=== PATIENT | female | born 1940 | race African-American/Black ===

== ENCOUNTER 2016-08-30 13:50 | Outpatient (CLI) | payer MEDICARE, BC | END 2016-08-30 23:59 | disposition home health service (06) | LOC: WOU 13:50 | PROVIDERS: ATTEND Surgery | DX: L89.324 Pressure ulcer of left buttock, stage 4 (principal); L89.323 Pressure ulcer of left buttock, stage 3; Z87.891 Personal history of nicotine dependence; E66.9 Obesity, unspecified; Z68.32 Body mass index [BMI] 32.0-32.9, adult; I10 Essential (primary) hypertension; R91.1 Solitary pulmonary nodule; N13.30 Unspecified hydronephrosis; G82.20 Paraplegia, unspecified; V89.2XXS Person injured in unspecified motor-vehicle accident, traffic, sequela | CPT/HCPCS: 11042; 11043; A6253; A6402 ==

== ENCOUNTER 2016-09-06 11:14 | Outpatient (CLI) | payer MEDICARE, BC | END 2016-09-06 23:59 | disposition home or self-care (01) | LOC: CT 11:14 | DX: R93.8 Abnormal findings on diagnostic imaging of other specified body structures (principal); I70.0 Atherosclerosis of aorta; I25.10 Atherosclerotic heart disease of native coronary artery without angina pectoris; N13.30 Unspecified hydronephrosis; Z90.49 Acquired absence of other specified parts of digestive tract | CPT/HCPCS: 71250-TC ==

== ENCOUNTER 2016-09-06 11:54 | Outpatient (CLI) | payer MEDICARE, BC | END 2016-09-06 23:59 | disposition home health service (06) | LOC: WOU 11:54 | PROVIDERS: ATTEND Surgery | DX: L89.324 Pressure ulcer of left buttock, stage 4 (principal); L89.323 Pressure ulcer of left buttock, stage 3; M86.68 Other chronic osteomyelitis, other site; Z87.891 Personal history of nicotine dependence; G82.20 Paraplegia, unspecified; T14.8 Other injury of unspecified body region; V89.2XXS Person injured in unspecified motor-vehicle accident, traffic, sequela; I10 Essential (primary) hypertension; E66.9 Obesity, unspecified; Z68.32 Body mass index [BMI] 32.0-32.9, adult; Z71.3 Dietary counseling and surveillance; D64.9 Anemia, unspecified; N13.30 Unspecified hydronephrosis; R91.1 Solitary pulmonary nodule; M99.85 Other biomechanical lesions of pelvic region | CPT/HCPCS: 11042; 11043; A6253; A6402; G0463 ==

== ENCOUNTER 2016-09-20 13:45 | Outpatient (CLI) | payer MEDICARE, BC | END 2016-09-20 23:59 | disposition home health service (06) | LOC: WOU 13:45 | PROVIDERS: ATTEND Surgery | DX: L89.324 Pressure ulcer of left buttock, stage 4 (principal); L89.323 Pressure ulcer of left buttock, stage 3; M86.68 Other chronic osteomyelitis, other site; Z87.891 Personal history of nicotine dependence; G82.20 Paraplegia, unspecified; T14.8 Other injury of unspecified body region; V89.2XXS Person injured in unspecified motor-vehicle accident, traffic, sequela; I10 Essential (primary) hypertension; E66.9 Obesity, unspecified; Z68.32 Body mass index [BMI] 32.0-32.9, adult; Z71.3 Dietary counseling and surveillance; D64.9 Anemia, unspecified; N13.30 Unspecified hydronephrosis; R91.1 Solitary pulmonary nodule; M99.85 Other biomechanical lesions of pelvic region | CPT/HCPCS: 11042; 11043; A6253; A6402 ==

== ENCOUNTER 2016-10-04 13:54 | Outpatient (CLI) | payer MEDICARE, BC | END 2016-10-04 23:59 | disposition home health service (06) | LOC: WOU 13:54 | PROVIDERS: ATTEND Surgery | DX: L89.324 Pressure ulcer of left buttock, stage 4 (principal); L89.323 Pressure ulcer of left buttock, stage 3; E66.9 Obesity, unspecified; Z68.32 Body mass index [BMI] 32.0-32.9, adult; N94.89 Other specified conditions associated with female genital organs and menstrual cycle; D64.9 Anemia, unspecified; I10 Essential (primary) hypertension; R91.1 Solitary pulmonary nodule; Z87.891 Personal history of nicotine dependence | CPT/HCPCS: 11042; 11043; A6253; A6402 ==

== ENCOUNTER 2016-10-18 14:02 | Outpatient (CLI) | payer MEDICARE, BC | END 2016-10-18 23:59 | disposition home health service (06) | LOC: WOU 14:02 | PROVIDERS: ATTEND Surgery | DX: L89.324 Pressure ulcer of left buttock, stage 4 (principal); L89.323 Pressure ulcer of left buttock, stage 3; Z87.891 Personal history of nicotine dependence; G82.20 Paraplegia, unspecified; T14.8 Other injury of unspecified body region; V89.2XXS Person injured in unspecified motor-vehicle accident, traffic, sequela; I10 Essential (primary) hypertension; E66.9 Obesity, unspecified; Z68.32 Body mass index [BMI] 32.0-32.9, adult; Z71.3 Dietary counseling and surveillance; D64.9 Anemia, unspecified; R91.1 Solitary pulmonary nodule; R15.9 Full incontinence of feces; R32 Unspecified urinary incontinence | CPT/HCPCS: 11042; 11043; A6253; A6402 ==

== ENCOUNTER 2016-11-08 13:12 | Outpatient (CLI) | payer MEDICARE, BC | END 2016-11-08 23:59 | disposition home health service (06) | LOC: WOU 13:12 | PROVIDERS: ATTEND Surgery | DX: L89.324 Pressure ulcer of left buttock, stage 4 (principal); M86.652 Other chronic osteomyelitis, left thigh; Z87.891 Personal history of nicotine dependence; E66.9 Obesity, unspecified; Z68.32 Body mass index [BMI] 32.0-32.9, adult; Z71.3 Dietary counseling and surveillance; D64.9 Anemia, unspecified; R91.1 Solitary pulmonary nodule; G82.20 Paraplegia, unspecified; I10 Essential (primary) hypertension; N94.89 Other specified conditions associated with female genital organs and menstrual cycle; Z87.440 Personal history of urinary (tract) infections; T14.8 Other injury of unspecified body region; V89.2XXS Person injured in unspecified motor-vehicle accident, traffic, sequela; R32 Unspecified urinary incontinence; R15.9 Full incontinence of feces | CPT/HCPCS: 11042; 11043; A6253; A6402 ==

== ENCOUNTER 2016-12-20 14:03 | Outpatient (CLI) | payer MEDICARE, BC | END 2016-12-20 23:59 | disposition home or self-care (01) | LOC: WOU 14:03 | PROVIDERS: ATTEND Surgery | DX: L89.324 Pressure ulcer of left buttock, stage 4 (principal); L89.323 Pressure ulcer of left buttock, stage 3; G82.20 Paraplegia, unspecified; I10 Essential (primary) hypertension; N94.89 Other specified conditions associated with female genital organs and menstrual cycle; T14.8 Other injury of unspecified body region; V89.2XXS Person injured in unspecified motor-vehicle accident, traffic, sequela; R32 Unspecified urinary incontinence; R15.9 Full incontinence of feces; Z87.891 Personal history of nicotine dependence; E66.9 Obesity, unspecified; Z68.32 Body mass index [BMI] 32.0-32.9, adult; Z71.3 Dietary counseling and surveillance; D64.9 Anemia, unspecified; J98.4 Other disorders of lung | CPT/HCPCS: 11042; 11043; A6253; A6402 ==

== ENCOUNTER 2016-12-27 12:25 | Outpatient (CLI) | payer MEDICARE, BC | END 2016-12-27 23:59 | disposition home health service (06) | LOC: WOU 12:25 | PROVIDERS: ATTEND Surgery | DX: L89.324 Pressure ulcer of left buttock, stage 4 (principal); L89.323 Pressure ulcer of left buttock, stage 3; R10.31 Right lower quadrant pain; N94.89 Other specified conditions associated with female genital organs and menstrual cycle; E66.9 Obesity, unspecified; Z68.32 Body mass index [BMI] 32.0-32.9, adult; Z71.3 Dietary counseling and surveillance; L53.9 Erythematous condition, unspecified; D64.9 Anemia, unspecified; I10 Essential (primary) hypertension; R91.1 Solitary pulmonary nodule; M86.652 Other chronic osteomyelitis, left thigh; T14.90 Injury, unspecified; G82.20 Paraplegia, unspecified; V89.2XXS Person injured in unspecified motor-vehicle accident, traffic, sequela; Z87.891 Personal history of nicotine dependence; R32 Unspecified urinary incontinence; R15.9 Full incontinence of feces | CPT/HCPCS: 11042; 11043; A6402 ==

== ENCOUNTER 2017-01-10 14:25 | Outpatient (CLI) | payer MEDICARE, BC | END 2017-01-10 23:59 | disposition home health service (06) | LOC: WOU 14:25 | PROVIDERS: ATTEND Surgery | DX: L89.324 Pressure ulcer of left buttock, stage 4 (principal); G82.20 Paraplegia, unspecified; E66.9 Obesity, unspecified; Z68.32 Body mass index [BMI] 32.0-32.9, adult; L89.323 Pressure ulcer of left buttock, stage 3; N94.89 Other specified conditions associated with female genital organs and menstrual cycle; Z87.891 Personal history of nicotine dependence; L53.9 Erythematous condition, unspecified; R91.1 Solitary pulmonary nodule; M86.652 Other chronic osteomyelitis, left thigh | CPT/HCPCS: 11043; A6253; A6402 ==

== ENCOUNTER 2017-01-24 14:00 | Outpatient (CLI) | payer MEDICARE, BC | END 2017-01-24 23:59 | disposition home health service (06) | LOC: WOU 14:00 | PROVIDERS: ATTEND Surgery | DX: L89.324 Pressure ulcer of left buttock, stage 4 (principal); L89.323 Pressure ulcer of left buttock, stage 3; L89.322 Pressure ulcer of left buttock, stage 2; G82.20 Paraplegia, unspecified; D64.9 Anemia, unspecified; E66.9 Obesity, unspecified; Z68.32 Body mass index [BMI] 32.0-32.9, adult; N94.89 Other specified conditions associated with female genital organs and menstrual cycle; Z87.891 Personal history of nicotine dependence; L53.9 Erythematous condition, unspecified; I10 Essential (primary) hypertension; R91.1 Solitary pulmonary nodule; M25.519 Pain in unspecified shoulder; M86.652 Other chronic osteomyelitis, left thigh | CPT/HCPCS: 11042; 11043; A6253; A6402 ==

== ENCOUNTER 2017-02-14 14:00 | Outpatient (CLI) | payer MEDICARE, BC | END 2017-02-14 23:59 | disposition home health service (06) | LOC: WOU 14:00 | PROVIDERS: ATTEND Surgery | DX: L89.324 Pressure ulcer of left buttock, stage 4 (principal); L89.323 Pressure ulcer of left buttock, stage 3; D64.9 Anemia, unspecified; E66.9 Obesity, unspecified; Z86.32 Personal history of gestational diabetes; N94.89 Other specified conditions associated with female genital organs and menstrual cycle; Z87.891 Personal history of nicotine dependence; M25.519 Pain in unspecified shoulder; I10 Essential (primary) hypertension; R91.1 Solitary pulmonary nodule; L53.9 Erythematous condition, unspecified; M86.652 Other chronic osteomyelitis, left thigh | CPT/HCPCS: 11042; 11043; A6253; A6402 ==

== ENCOUNTER 2017-12-19 16:41 | Inpatient (IN) | payer BC, MEDICARE, OTHER ==
[~2017-12-19] VITALS: Ht 167.6 cm; Wt 104.4 kg
[2017-12-19] VITALS (12 sets, daily range): BP systolic 69–138; BP diastolic 16–77
--- NOTE | 2017-12-19 16:48 | NUR ---
KILEY 89 FROM [facility]IS [facility]ENTER, DIDN'T FINISH THE DIALYSIS, C/O O2 DESAT TO 82% DURING DIALYSIS. PLACED ON THE MONITOR. MIDLINE DAMARI NOTED, +PATENT. AWAITING MD FOR EVAL.
--- NOTE | 2017-12-19 16:55 | NUR ---
PT. 77 Y OLD FEMALE REC. IN ER AWAKE, BUT NOT RESPONSIVE. PT. TRACHED PORTEX# 8 PLACED ON VENT WITH NOTED SETTINGS, ALARMS ARE SET AND FUNCTIONAL. EQUAL CHEST RISE NOTED. SUX'D FOR MINIMAL AMT. THICK YELLOW SECRETIONS, B/S RHONCHI BILATERALLY. AMBU BAG REMAIN AT THE BEDSIDE. VENT PLUGGED INTO REDOUT LET. CONTINUE FOR CARE AND MONITORING. REPORT WILL PASS TO PM SHIFT. Addendum: 12/19/17 at 1751 by ALMA CLANCY RT Amended: Links added.
[2017-12-19] MEDS ORDERED: IV NS 0.9% 500 ML BAG IV ONE (17:30)
[2017-12-19 17:42] LABS: BASOPHILS % (AUTO) 0.1 % (0.0-2.0); EOSINOPHILS % (AUTO) 0.1 % (0.0-6.0); HEMATOCRIT 23 % (33-45); HEMOGLOBIN 7.8 g/dL (11.5-14.8); LYMPHOCYTES # (AUTO) 0.6 /CMM (0.8-4.8); LYMPHOCYTES % (AUTO) 4.2 % (20.0-44.0); MEAN CORPUSCULAR HGB CONC 33 g/dl (31.0-36.0); MEAN CORPUSCULAR VOLUME 88 fL (82-100); MONOCYTES # (AUTO) 0.4 /CMM (0.1-1.30); MONOCYTES % (AUTO) 2.8 % (2.0-12.0); NEUTROPHILS # (AUTO) 13.7 /CMM (1.8-8.9); NEUTROPHILS % (AUTO) 92.8 % (43.0-81.0); PLATELET COUNT (AUTO) 150 /CMM (150-450); RDW COEFFICIENT OF VARIATION 20.6 (11.5-15.0); RED BLOOD CELL COUNT(AUTO) 2.63 MIL/uL (4.0-5.2); WHITE BLOOD COUNT (AUTO) 14.7 K/uL (4.3-11.0)
[2017-12-19] MEDS ORDERED: DOPamine 400 MG in IV D5W 250 ML IV ONE (18:00)
[2017-12-19 18:03] LABS: TROPONIN I < 0.017 ng/mL (0.00-0.056)
[2017-12-19] MEDS ORDERED: DOPamine 400MG/D5W 250ML RTU 250 ML IV ONE (18:04)
[2017-12-19 18:11] LABS: ALANINE AMINOTRANSFERASE 21 U/L (12-78); ALBUMIN 1.9 g/dL (3.4-5.0); ALKALINE PHOSPHATASE 172 U/L (46-116); ASPARTATE AMINOTRANSFERASE 22 U/L (15-37); B-TYPE NATRIURETIC PEPTIDE 1912 PG/ML (0-125); BAND % (MANUAL) 25 % (0.0-5.0); BILIRUBIN,DIRECT 0.1 mg/dL (0.0-0.2); BILIRUBIN,TOTAL 0.3 mg/dL (0.2-1.0); CALCIUM, SERUM 10.2 mg/dL (8.5-10.1); CARBON DIOXIDE 23 mmol/L (21-32); CHLORIDE 102 mmol/L (98-107); CREATININE 0.7 mg/dL (0.6-1.3); GLUCOSE 86 mg/dL (74-106); LYMPHOCYTES % (MANUAL) 7 % (16-48); METAMYELOCYTES % 1 % (0-0); MONOCYTES % (MANUAL) 3 % (0-11.0); MYELOCYTES % 1 % (0-0); NEUTROPHILS % (MANUAL) 63 (42-76); TOTAL PROTEIN, SERUM 5.7 g/dL (6.4-8.2); UREA NITROGEN, BLOOD 37 mg/dL (7-18)
[2017-12-19 18:22] LABS: INR 0.91 (0.87-1.13)
[2017-12-19] MEDS ORDERED: ONDA4TAB5 GT (18:23)
[2017-12-19] MEDS ORDERED: CLON0.1T GT (18:23)
[2017-12-19] MEDS ORDERED: MORP2SYR IV (18:23)
[2017-12-19] MEDS ORDERED: LEVO200T8 GT (18:23)
[2017-12-19] MEDS ORDERED: VIT1TABL46 GT (18:23)
[2017-12-19] MEDS ORDERED: LOSA25TA13 GT (18:23)
[2017-12-19] MEDS ORDERED: PANT40TA2 GT (18:23)
[2017-12-19] MEDS ORDERED: LORA0.5T PO (18:23)
[2017-12-19] MEDS ORDERED: ACET-868 PO (18:23)
[2017-12-19] MEDS ORDERED: NUT.237L67 GT (18:23)
[2017-12-19] MEDS ORDERED: PROT946L GT (18:23)
[2017-12-19] MEDS ORDERED: ASCO250T5 GT (18:23)
[2017-12-19 18:27] LABS: POTASSIUM 2.5 mmol/L (3.5-5.1); SODIUM SERUM 135 mmol/L (136-145)
--- NOTE | 2017-12-19 18:58 | NUR ---
REPORT GIVEN TO SHELDON LORENZ FOR KIERA.
[2017-12-19] MEDS ORDERED: PIPERACILLIN /TAZOBACTAM 3.375 G in IV D5W 50 ML IV ONE (19:00)
[2017-12-19] MEDS ORDERED: VANCOMYCIN 1 GM in IV D5W 250 ML IV ONE (19:00)
[2017-12-19] MEDS ORDERED: PIPERACILLIN /TAZOBACTAM 3.375 G VIAL IV ONE (19:09)
--- NOTE | 2017-12-19 19:40 | NUR ---
ICU 260
--- NOTE | 2017-12-19 19:41 | NUR ---
ADMITTING DX AMS, FANG JACK REGULATED PROGRAM MANAGER
[2017-12-19] MEDS ORDERED: ONDANSETRON HCL/PF 4 MG/2 ML VIAL IVP PRN (20:00)
[2017-12-19] MEDS ORDERED: ALBUTEROL FS 2.5 MG/0.5 ML VIAL.NEB NEB PRN (20:00)
[2017-12-19] MEDS ORDERED: FENTANYL PF 100MCG/2ML AMPUL IV PRN (20:00)
[2017-12-19] MEDS ORDERED: IPRATROPIUM NEB FS 0.5 MG/2.5 ML AMPUL.NEB NEB PRN (20:00)
[2017-12-19] MEDS ORDERED: VANCOMYCIN 1 GM VIAL ONE (20:24)
--- NOTE | 2017-12-19 20:42 | NUR ---
RT TRANSFERRED PT TO ROOM 260 VIA AMBU BAG PT RETUNED TO PREVIOUS SETTINGS AMBU BAG AT BEDSIDE ALARMS SET AND AUDIBLE. DISCONNECT ALARMS CHECKED. VENT PLUGGED INTO RED OUTLET. TOLERATING VENT SETTINGS AT THIS TIME Addendum: 12/19/17 at 4 by HOMAR PALACIOS RT Amended: Links added.
[2017-12-19] MEDS: DOPamine 400 MG in IV D5W 250 ML IV PRN (20:45)
--- NOTE | 2017-12-19 21:00 | NUR ---
INTEGRATION SOLUTION ARCHITECT - NOTES - PT RECEIVED FROM ER ADMITTED FOR LOW BP AND LOW 02SAT DURING HD. PT IS FUNCTIONAL QUADRIPLEGIC. PT IS ALERT AND ABLE TO TRACK AND BLINK ONCE FOR NO AND TWICE FOR YES. PT IS IN SINUS RHYTHM ON DOPAMINE @ 5 MCG FROM ER. PT HAS MIDLINE INSERTED BEFORE ADMISSION, PATENT. PT HAS +4 PITTING EDEMA WEEPING, PT HAS SKIN TEAR ON RIGHT ARM, LEFT HAND, AND FULL THICKNESS LOSS WOUND ON LEFT BUTTOCK 2 CM X 2 CM X 4 CM (DEEP). PT HAS TRACH PORTEX 8. PT HAS PEG TUBE. POTASSIUM IS 2.5, WILL GIVE 40 MEQ KCL VIA IV. WILL CONTINUE TO MONITOR
[2017-12-19] MEDS: PANTOPRAZOLE 40 MG VIAL IV SCH (21:03)
[2017-12-19] MEDS: POTASSIUM CL. PREMIX PERIPHER. 50 ML IV SCH ×3 (21:03→23:12)
--- NOTE | 2017-12-19 21:52 | NUR ---
DAVID PEREZ CELL PHONE NUMBER [phone]. HE SAYS HE WANTS PATIENT TO BE FULL CODE, PT SIGNED TO VOID POLST (DNR) IN CHART. ALSO SIGNED CONSENT FOR PICC LINE, EXPLAINED RISKS AND BENEFITS OF PICC LINE AND AGREES TO HAVE ONE PLACED IF NEEDED
[2017-12-19] MEDS ORDERED: DOPamine 400 MG/D5W 250 ML RTU PIGGYBACK IV ONE (23:00)
[2017-12-19] MEDS ORDERED: DOPamine 400 MG/D5W 250 ML RTU PIGGYBACK IV PRN ×2 (23:00→23:02)
[2017-12-19 23:13] LABS: ABG BASE EXCESS -8.5 mmol/L; ABG OXYGEN SATURATION 89.8 % (92.0-98.5); ABG PCO2 52.2 mmHg (35.0-45.0); AaDO2 234.8 mmHg; COHb 1.1 % (0.5-1.5); MetHb 0.3 % (0.0-1.5); O2Hb 88.5 % (94.0-97.0); PEEP,BG 5 cm H2O; SITE, ABG Left Radial; VENT MODE, BG VENT-AC; VT, ABG 500 mL
[2017-12-19] MEDS: IPRATROPIUM NEB FS 0.5 MG/2.5 ML AMPUL.NEB NEB SCH (23:30)
[2017-12-19] MEDS: ALBUTEROL FS 2.5 MG/0.5 ML VIAL.NEB NEB SCH (23:30)
--- NOTE | 2017-12-19 23:42 | NUR ---
PT REC'D TRACHED WITH PORTEX 8 ON [facility] VENT WITH NOTED SETTINGS. PT TOLERATING WELL NO SOB NOTED AT THIS TIME. SX DONE, SMALL AMOUNT OF THICK YELLOW/BYNUM. BREATH SOUNDS CLEAR AND EQUAL BILAT. VENT PLUGGED INTO RED OUTLET. AMBU BAG AT BEDSIDE. WILL CONTINUE TO MONITOR FURTHER. Addendum: 12/20/17 at 0605 by FUAD ESQUIVEL RT Amended: Links added.
[2017-12-20] VITALS (106 sets, daily range): BP systolic 63–157; BP diastolic 19–104
[2017-12-20] MEDS: POTASSIUM CL. PREMIX PERIPHER. 50 ML IV SCH (00:14)
[2017-12-20] MEDS ORDERED: DOPamine 400 MG/D5W 250 ML RTU PIGGYBACK IV PRN (00:30)
[2017-12-20] MEDS ORDERED: PIPERACILLIN /TAZOBACTAM 3.375 G VIAL IV ONE ×2 (00:43→05:23)
[2017-12-20] MEDS: PIPERACILLIN /TAZOBACTAM 3.375 G in IV D5W 50 ML IV SCH ×5 (00:45→23:35)
--- NOTE | 2017-12-20 01:34 | NUR ---
PT HAD AN EPISODE BRADYCARDIA, HEART RATE DROPPED BELOW 30S, WE STARTED CPR AND CALLED A CODE BLUE, AFTER 5 COMPRESSIONS, HEART RETURNED TO 80S, AND PT WAS ABLE TO RESPOND TO QUESTIONS BY BLINKING TWICE FOR YES AND TRACKING PEOPLE. BP WENT UP TO 132/55. CODE BLUE CANCELLED
--- NOTE | 2017-12-20 02:30 | NUR ---
EXTRUSION TECHNICIAN. AROUND 0120, HEART RATE WENT 30,SUDDEN PT UNRESPONSIVE NO PULSE ,ACTIVATED CODE BLUE, AFTER CPR HEART RATE BACK TO NORMAL. CODE BLUE CANCELED.NOTIFIED DR HSIEH . WILL CONTINUE TO MONITOR
--- NOTE | 2017-12-20 02:38 | NUR ---
MEDICAL TRANSCRIPTION SUPERVISOR. DR HSIEH AT BED SIDE ASSESS THE PT.
[2017-12-20] MEDS: IPRATROPIUM NEB FS 0.5 MG/2.5 ML AMPUL.NEB NEB SCH ×6 (03:42→23:36)
[2017-12-20] MEDS: ALBUTEROL FS 2.5 MG/0.5 ML VIAL.NEB NEB SCH ×6 (03:42→23:36)
[2017-12-20 04:50] LABS: EOSINOPHILS % (AUTO) 0.1 % (0.0-6.0); HEMATOCRIT 24 % (33-45); HEMOGLOBIN 7.9 g/dL (11.5-14.8); LYMPHOCYTES # (AUTO) 0.5 /CMM (0.8-4.8); LYMPHOCYTES % (AUTO) 1.8 % (20.0-44.0); MEAN CORPUSCULAR HGB CONC 33 g/dl (31.0-36.0); MEAN CORPUSCULAR VOLUME 88 fL (82-100); MONOCYTES # (AUTO) 0.2 /CMM (0.1-1.30); MONOCYTES % (AUTO) 0.8 % (2.0-12.0); NEUTROPHILS # (AUTO) 28.1 /CMM (1.8-8.9); NEUTROPHILS % (AUTO) 97.3 % (43.0-81.0); PLATELET COUNT (AUTO) 123 /CMM (150-450); RDW COEFFICIENT OF VARIATION 20.4 (11.5-15.0); RED BLOOD CELL COUNT(AUTO) 2.67 MIL/uL (4.0-5.2); WHITE BLOOD COUNT (AUTO) 28.8 K/uL (4.3-11.0)
[2017-12-20 05:09] LABS: IRON, SERUM 52 ug/dl (50-175); TOTAL IRON BINDING CAPACITY 203 ug/dl (250-450)
[2017-12-20 05:12] LABS: INR 0.93 (0.87-1.13)
[2017-12-20 05:19] LABS: ALANINE AMINOTRANSFERASE 23 U/L (12-78); ALBUMIN 1.8 g/dL (3.4-5.0); ALKALINE PHOSPHATASE 175 U/L (46-116); ASPARTATE AMINOTRANSFERASE 23 U/L (15-37); BILIRUBIN,TOTAL 0.4 mg/dL (0.2-1.0); CALCIUM, SERUM 10.3 mg/dL (8.5-10.1); CARBON DIOXIDE 22 mmol/L (21-32); CHLORIDE 99 mmol/L (98-107); CHOLESTEROL 111 mg/dL (<200); CREATININE 0.8 mg/dL (0.6-1.3); GLUCOSE 100 mg/dL (74-106); HDL CHOLESTEROL 56 mg/dL (40-60); LDL 42 mg/dL (0-99); PHOSPHORUS 3.1 mg/dL (2.5-4.9); SODIUM SERUM 132 mmol/L (136-145); THYROID STIMULATING HORMONE 37.957 uIU/mL (0.358-3.74); TOTAL PROTEIN, SERUM 5.6 g/dL (6.4-8.2); TRIGLYCERIDES 70 mg/dL (30-150); UREA NITROGEN, BLOOD 43 mg/dL (7-18)
[2017-12-20 05:35] LABS: BAND % (MANUAL) 20 % (0.0-5.0)
[2017-12-20 05:36] LABS: LYMPHOCYTES % (MANUAL) 3 % (16-48); METAMYELOCYTES % 2 % (0-0); MONOCYTES % (MANUAL) 2 % (0-11.0); MYELOCYTES % 1 % (0-0)
[2017-12-20 05:37] LABS: NEUTROPHILS % (MANUAL) 72 (42-76)
[2017-12-20 05:50] LABS: ABG BASE EXCESS -5.6 mmol/L; ABG OXYGEN SATURATION 94.5 % (92.0-98.5); ABG PCO2 43.6 mmHg (35.0-45.0); ABG PH 7.292 (7.350-7.450); ABG PO2 72.9 mmHg (75.0-100.0); AaDO2 379.3 mmHg; MetHb 0.4 % (0.0-1.5); O2Hb 93.2 % (94.0-97.0); PEEP,BG 5 cm H2O; SITE, ABG Left Radial; VENT MODE, BG VENT-AC; VT, ABG 550 mL
[2017-12-20] MEDS ORDERED: POTASSIUM CHLORIDE 20 MEQ POWDER PACKET GT SCH (07:30)
[2017-12-20] MEDS ORDERED: FEE PK DOSING 1 MIN EA MC ONE ×2 (08:00→20:28)
[2017-12-20] MEDS ORDERED: VANCOMYCIN 500 MG in IV D5W 100 ML IV PRN (08:00)
[2017-12-20 08:01] LABS: THYROID STIMULATING HORMONE 37.535 uIU/mL (0.358-3.74)
--- NOTE | 2017-12-20 08:04 | NUR ---
PT RECEIVED TRACHED ON MECHANICAL VENT W/ SETTINGS PER MD ORDER. VENT ALARMS CHECKED AND AUDIBLE, VENT IN RED OUTLET, AMBUBAG AT BEDSIDE. PT SX'ED AND LAVAGED PRN. TRACH TUBE PATENT, SECURE, CLEAN AND DRY. BS EQUAL, DIMINISHED. NO RESP DISTRESS NOTED. PLAN IS TO CONTINUE W/ CURRENT CARE UNDER MD ORDERS AND MONITOR FOR CHANGES IN STATUS. Addendum: 12/20/17 at 0806 by MONIKA RODRIGUEZ RT Amended: Links added.
[2017-12-20] MEDS: LEVOTHYROXINE SODIUM 100 MCG TABLET GT SCH (08:39)
[2017-12-20] MEDS: VIT B CMPLX 3/FA/VIT C/BIOTIN 1 TAB TABLET GT SCH (08:39)
[2017-12-20] MEDS: HYDROCORTISONE SOD SUCCINATE 100 MG/2 ML VIAL IV SCH ×3 (08:40→17:01)
[2017-12-20] MEDS: ASCORBIC ACID 500 MG TABLET GT SCH (08:53)
[2017-12-20] MEDS: DOPamine 400 MG in IV D5W 250 ML IV PRN ×3 (08:58→23:09)
[2017-12-20] MEDS ORDERED: ASCORBIC ACID 500 MG TABLET PO SCH (09:00)
--- NOTE | 2017-12-20 09:31 | NUR ---
SENIOR SQL SERVER DATABASE DEVELOPER DF MD JEFF AT BEDSIDE WITH FAMILY TO DISCUSS POC/. ABG ORDERED/PEEP DISCONTINUED. HD IN PROGRESS STARTED AT 0800. DOPAMINE GTT AT 8MCG/MIN GOAL SBP ABOVE 90 AND HEART RATE ABOVE 90.
--- NOTE | 2017-12-20 09:38 | NUR ---
PEN RULER OPERATOR DF BP OF 89/32 DOPAMINE GTT TITRATED TO 11MCG SBP INCREASED TO 110. HD NURSE AT BEDSIDE.
--- NOTE | 2017-12-20 09:50 | NUR ---
KEYBOARDING CLERK DF ALBUMIN WITH HD ORDERED FOR BP SUPPORT.AWAITING MED DELIVERY.
[2017-12-20] MEDS: PROSOURCE / PROSTAT (PYXIS) 30 ML UDC GT SCH ×3 (09:57→16:56)
--- NOTE | 2017-12-20 09:59 | NUR ---
REGIONAL SALES CONSULTANT DF PT RANDOM VANCO LEVEL OF 42, PER ORDERS WILL NOT ADMIN VANCOMYCIN POST HD.
[2017-12-20] MEDS ORDERED: ALBUMIN 25% 25 GM in PREMIX 1 EA IV ONE (10:00)
--- NOTE | 2017-12-20 10:30 | NUR ---
WOUND CARE CONSULT: PT NOT SEEN YET FOR SKIN ASSESSMENT DUE TO PT ON DIALYSIS AT THIS TIME. FIRST STEP MATTRESS ON ORDER. WILL SEE PT PT CONDITION PERMITS. RECOMMEND SURGICAL CONSULT.
[2017-12-20] MEDS: FLUDROCORTISONE 0.1 MG TABLET GT SCH ×3 (11:11→23:35)
--- NOTE | 2017-12-20 11:34 | NUR ---
STRUCTURAL IRONWORKER DF PT SEEN/EVAL BY DIETARY. HD COMPLETED WITH 2000ML REMOVED. REMAINS ON DOPAMINE GTT @11MCG. PT TO BE STARTED ON TUBE FEEDING. AWAITING FEEDING/PUMP.
[2017-12-20] MEDS: NEPRO 1,000 ML BOTTLE GT SCH (14:58)
--- NOTE | 2017-12-20 14:58 | NUR ---
SAND WHEELER DF ORDERS RECEIVED FROM MD MORROW FOR RAMOS INSERTION,I WILL APPLY FIRST STEP AIR MATTRESS. PT BP 89/52 DOPAMINE GTT TITRATED TO 10MCG GOAL TO KEEP SBP ABOVE 90.
[2017-12-20 15:17] LABS: ABG BASE EXCESS -4.5 mmol/L; ABG OXYGEN SATURATION 98.2 % (92.0-98.5); ABG PCO2 29.4 mmHg (35.0-45.0); ABG PH 7.433 (7.350-7.450); ABG PO2 105.8 mmHg (75.0-100.0); AaDO2 289.7 mmHg; COHb 1.8 % (0.5-1.5); MetHb 0.8 % (0.0-1.5); O2Hb 95.6 % (94.0-97.0); PEEP,BG 0 cm H2O; SITE, ABG Right Radial; VENT MODE, BG AC 18 550 60% +0; VT, ABG 550 mL
--- NOTE | 2017-12-20 15:28 | NUR ---
DELICATESSEN SLICER DF PT ABG RESULTED. PH 7.43 CO2 29.4/PO2 105/HCO3 19.2. MD JEFF ROUNDING ON UNIT. ORDERS TO CHANGE TV TO 500ML AND FIO2 TO 50%.
--- NOTE | 2017-12-20 17:53 | NUR ---
FISHING ACCESSORIES MAKER DF PT RAMOS CATHETER INSERTED USING STRICT STERILE TECHNIQUE. INITIALLY WITH DIFFICULT INSERTION. F/C INSERTED WITH RETURN OF YELLOW URINE 5-10 ML.
[2017-12-20] MEDS ORDERED: DOSING PER PHARMACY-AMIKACI IV XX PRN (20:00)
--- NOTE | 2017-12-20 20:00 | NUR ---
RECEIVED PATIENT AWAKE BLINK EYES WHEN NAME CALLED.AFEBRILE.WITH TRACH TO MECHANICAL VENT ON AC MODE.SETTINGS WELL TOLERATED.NO DISTRESS NOTED.SR WITH ONGOING DOPAMINE GTT AT 10 MCG TO KEEP SBP >90 VIA DAMARI MIDLINE.SITE INTACT.GT FEEDING INFUSING AT 60 ML/HR. RESIDUAL MINIMAL.FC TO GRAVITY NO URINE OUTPUT NOTED AT THIS TIME.PATIENT TURNED AND REPOSITIONED.
[2017-12-20] MEDS: PANTOPRAZOLE 40 MG VIAL IV SCH (20:18)
[2017-12-20] MEDS ORDERED: AMIKACIN 400 MG in IV D5W 100 ML IV PRN (20:30)
[2017-12-20] MEDS ORDERED: AMIKACIN 400 MG in IV D5W 100 ML IV ONE (20:30)
[2017-12-20] MEDS ORDERED: DOPamine 400MG/D5W 250ML RTU 250 ML IV ONE (22:32)
[2017-12-21] VITALS (110 sets, daily range): BP systolic 53–145; BP diastolic 29–90
--- NOTE | 2017-12-21 | NUR ---
PATIENT WITH MODERATE SECRETIONS ORALLY.SUCTIONED PRN AND ORAL CARE DONE.TURNED AND REPOSITIONED.
--- NOTE | 2017-12-21 04:00 | NUR ---
AM CARE DONE.TRACH CARE DONE.WOUND DRESSING DONE.PATIENT VS STABLE.SR. DOPAMINE GTT TITRATED ACCORDINGLY.TURNED AND REPOSITIONED.
[2017-12-21] MEDS: ALBUTEROL FS 2.5 MG/0.5 ML VIAL.NEB NEB SCH ×6 (04:12→23:46)
[2017-12-21] MEDS: IPRATROPIUM NEB FS 0.5 MG/2.5 ML AMPUL.NEB NEB SCH ×6 (04:13→23:46)
[2017-12-21 04:22] LABS: HEMATOCRIT 21 % (33-45); HEMOGLOBIN 7.3 g/dL (11.5-14.8); LYMPHOCYTES % (AUTO) 2.7 % (20.0-44.0); MEAN CORPUSCULAR HGB CONC 34 g/dl (31.0-36.0); MEAN CORPUSCULAR VOLUME 88 fL (82-100); MONOCYTES # (AUTO) 0.2 /CMM (0.1-1.30); MONOCYTES % (AUTO) 0.6 % (2.0-12.0); NEUTROPHILS # (AUTO) 36.5 /CMM (1.8-8.9); NEUTROPHILS % (AUTO) 96.7 % (43.0-81.0); PLATELET COUNT (AUTO) 144 /CMM (150-450); RDW COEFFICIENT OF VARIATION 20.7 (11.5-15.0); RED BLOOD CELL COUNT(AUTO) 2.43 MIL/uL (4.0-5.2)
[2017-12-21 04:41] LABS: WHITE BLOOD COUNT (AUTO) 37.8 K/uL (4.3-11.0)
[2017-12-21 04:47] LABS: TROPONIN I < 0.017 ng/mL (0.00-0.056)
--- NOTE | 2017-12-21 05:00 | NUR ---
PARKS AND RECREATION MANAGERJUAN CALLED REGARDING PATIENT AM LAB RESULT.WBC 37.8.PATIENT ON ZOSYN AND AMIKACIN.WILL NOTIFY THIS AM.WILL ENDORSE TO INCOMING AM SHIFT RN FOR KIERA.
[2017-12-21] MEDS ORDERED: DOPamine 400MG/D5W 250ML RTU 250 ML IV ONE (05:08)
[2017-12-21 05:19] LABS: BAND % (MANUAL) 16 % (0.0-5.0); LYMPHOCYTES % (MANUAL) 4 % (16-48); MONOCYTES % (MANUAL) 3 % (0-11.0); MYELOCYTES % 1 % (0-0); NEUTROPHILS % (MANUAL) 76 (42-76)
[2017-12-21] MEDS: DOPamine 400 MG in IV D5W 250 ML IV PRN ×3 (05:39→19:54)
[2017-12-21] MEDS: PIPERACILLIN /TAZOBACTAM 3.375 G in IV D5W 50 ML IV SCH ×4 (05:40→23:31)
[2017-12-21] MEDS: FLUDROCORTISONE 0.1 MG TABLET GT SCH ×4 (05:47→23:31)
[2017-12-21 06:05] LABS: ALANINE AMINOTRANSFERASE 25 U/L (12-78); ALBUMIN 2.2 g/dL (3.4-5.0); ALKALINE PHOSPHATASE 172 U/L (46-116); ASPARTATE AMINOTRANSFERASE 20 U/L (15-37); BILIRUBIN,TOTAL 0.5 mg/dL (0.2-1.0); CALCIUM, SERUM 10.8 mg/dL (8.5-10.1); CARBON DIOXIDE 19 mmol/L (21-32); CHLORIDE 98 mmol/L (98-107); GLUCOSE 155 mg/dL (74-106); MAGNESIUM 3.5 mg/dL (1.8-2.4); PHOSPHORUS 4.2 mg/dL (2.5-4.9); POTASSIUM 4.7 mmol/L (3.5-5.1); SODIUM SERUM 130 mmol/L (136-145); UREA NITROGEN, BLOOD 50 mg/dL (7-18)
[2017-12-21] MEDS: LEVOTHYROXINE SODIUM 100 MCG TABLET GT SCH (08:18)
[2017-12-21] MEDS: ASCORBIC ACID 500 MG TABLET GT SCH (08:41)
[2017-12-21] MEDS: HYDROCORTISONE SOD SUCCINATE 100 MG/2 ML VIAL IV SCH ×3 (08:42→16:23)
[2017-12-21] MEDS: VIT B CMPLX 3/FA/VIT C/BIOTIN 1 TAB TABLET GT SCH (08:43)
[2017-12-21] MEDS: PROSOURCE / PROSTAT (PYXIS) 30 ML UDC GT SCH ×3 (08:44→16:24)
--- NOTE | 2017-12-21 09:43 | NUR ---
SLEEVE TURNER DF PT SEEN AND EVALUATED BY WOUND CARE NURSE NADINE. ORDERS RECEIVED. NEW WOUND OBSERVED TO LEFT ABDOMINAL FOLD.
--- NOTE | 2017-12-21 09:48 | NUR ---
WOUND CARE CONSULT: PT PRESENTS WITH MULTIPLE WOUNDS, PRESENT ON ADMISSION INCLUDING SACRAL ULCER, STAGE 4 WHICH EXTENDS TO LEFT BUTTOCK, LEFT GROIN EXCORIATION, LEFT HAND RAISED BLISTER AND RT ARM SKIN TEAR. PT HAS 4+ PITTING EDEMA WHICH IS GENERALIZED AND SOME WEEPING NOTED TO UPPER EXTREMITIES. PT IS VENT- DEPENDENT AND IMMOBILE WITH CURRENT PAYAL SCORE OF 8. RECOMMEND SURGICAL CONSULT. ALL SKIN PROTECTION MEASURES IN PLACE AND DISCUSSED WITH NURSING STAFF. PT ON FIRST STEP MATTRESS. WILL SEE PRN. VALDEZ IN AGREEMENT WITH PLAN OF CARE. Addendum: 12/21/17 at 0951 by NADINE EDWARDS WNDNU Amended: Links added.
--- NOTE | 2017-12-21 09:59 | NUR ---
SPORTS LAWYER DF URINE CX OBTAINED AND SENT TO LAB.
[2017-12-21] MEDS ORDERED: Z GUARD REMEDY 2 OZ OINT TP PRN (10:00)
[2017-12-21] MEDS ORDERED: HYDROGEL DRESSING 90 GM TUBE TP PRN (10:00)
--- NOTE | 2017-12-21 10:36 | NUR ---
COURTROOM CLERK DF MD ABDULLAHI AT BEDSIDE ORDERS TO REMOVE RAMOS CATH.(DC) POC DISCUSSED WITH FAMILY REMOVE DARYA CATH/NEW ACCESS TO BE OBTAINED. TO BE DONE BY NEPHROLOGY/HD RN. DAVID PEREZ IN AGREEMENT WITH POC/CONSENT DISCUSSED WITH MD/FAMILY.
[2017-12-21] MEDS: Z GUARD REMEDY 2 OZ OINT TP SCH (10:56)
[2017-12-21] MEDS: HYDROGEL DRESSING 90 GM TUBE TP SCH (10:56)
--- NOTE | 2017-12-21 10:58 | NUR ---
RT NOTE PT STABLE. PT MECHANICALLY VENTILATED VIA PORTEX 8 DCT CUFFED TRACH. TRACH MIDLINE AND SECURE. SETTINGS PRESCRIBED. ALARMS SET PER PROTOCOL AND AUDIBLE. VENT PLUGGED IN TO RED OUTLET. AMBU BAG AT BED SIDE. NO DISTRESS NOTED. WILL CONTINUE TO MONITOR.
[2017-12-21] MEDS ORDERED: CELLULOSE,OXIDIZED 1 EACH EACH MC ONE (11:00)
--- NOTE | 2017-12-21 13:24 | NUR ---
VOCATIONAL HORTICULTURE INSTRUCTOR DF OBSERVED PT DOPAMINE PUMP STOPPED TRANSFUSING FOR A FEW MINUTES. PRIOR BP OF 121/74 @1301, 1318 BP OF 53/29 OBSERVED PUMP IN OFF MODE. I RESTARTED DOPAMINE GTT @ 15 MCG BP INCREASED TO 132/71 HEART RATE OF 84. DIALYSIS BEING DONE AT THIS TIME SHELDON AHMED AT BEDSIDE. VSS. NAD NOTED. PUPMPS/ALARMS CHECKED OPERATING WNL.
--- NOTE | 2017-12-21 14:13 | NUR ---
SED SPECIAL EDUCATION TEACHER DF PT DIALYSIS COMPLETED. HD RN KISHOR WAS PREPARED TO REMOVE CATHETER THEN RECEIVED MESSAGE FROM MD ABDULLAHI THAT LINE WILL BE REMOVED TOMORROW.SAND BAGS/SURGICEL LEFT IN ROOM FOR TOMORROW,S PROCEDURE. PT ON DOPAMINE 15MCG. VSS. PT RESTARTED ON TUBE FEEDING WHICH IS SUPPOSED TO RUN OVER 16 HOURS.
--- NOTE | 2017-12-21 15:39 | NUR ---
ROTOPRINTER DF ABG RESULTED PH 7.42/CO2 33/PO2 47/HCO3 21.8 RT TO DISCUSS RESULTS WITH MD JEFF. FIO2 INCREASED TO 50%.
[2017-12-21 15:41] LABS: ABG BASE EXCESS -2.2 mmol/L; ABG OXYGEN SATURATION 87.2 % (92.0-98.5); ABG PCO2 33.7 mmHg (35.0-45.0); ABG PH 7.429 (7.350-7.450); ABG PO2 47.6 mmHg (75.0-100.0); AaDO2 198.8 mmHg; COHb 0.5 % (0.5-1.5); MetHb 0.9 % (0.0-1.5); SITE, ABG Right Radial; VENT MODE, BG AC 18 550 40% +0
[2017-12-21] MEDS: LACTOBACILLUS RHAMNOSUS GG 1 EACH CAP.SPRINK GT SCH (16:23)
[2017-12-21] MEDS: ACETAMINOPHEN 325 MG TABLET MC PRN (18:42)
--- NOTE | 2017-12-21 18:51 | NUR ---
CASHIERS SUPERVISOR DF PT C/O GENERALIZED PAIN. PT MEDICATED WITH TYLENOL 650 MG VIA GT.
--- NOTE | 2017-12-21 20:00 | NUR ---
RECEIVED PATIENT SLEEPING OPEN EYES TO NAME CALLING.DENIES PAIN.SR WITH ONGOING DOPAMINE GTT FOR BP AND HR SUPPORT.MAINTAINED ON PRESCRIBED VENT SETTINGS.WELL TOLERATED.GT FEEDING INFUSING AT 60 ML/HR NO RESIDUAL NOTED.WITH MULTIPLE SKIN ISSUES.DRESSING CLEAN DRY AND INTACT.ANURIC.HD CATH IN PLACE.PATIENT TURNED AND REPOSITIONED.MAINTAINED ON KCI MATTRESS.
[2017-12-21] MEDS: PANTOPRAZOLE 40 MG VIAL IV SCH (20:15)
[2017-12-22] VITALS (108 sets, daily range): BP systolic 86–143; BP diastolic 49–87
[2017-12-22] MEDS: DOPamine 400 MG in IV D5W 250 ML IV PRN ×2 (04:13→12:09)
[2017-12-22] MEDS: ALBUTEROL FS 2.5 MG/0.5 ML VIAL.NEB NEB SCH ×6 (04:15→23:51)
[2017-12-22] MEDS: IPRATROPIUM NEB FS 0.5 MG/2.5 ML AMPUL.NEB NEB SCH ×6 (04:15→23:52)
[2017-12-22 04:40] LABS: BASOPHILS % (AUTO) 0.1 % (0.0-2.0); EOSINOPHILS % (AUTO) 0.1 % (0.0-6.0); LYMPHOCYTES # (AUTO) 0.8 /CMM (0.8-4.8); LYMPHOCYTES % (AUTO) 3.9 % (20.0-44.0); MEAN CORPUSCULAR HGB CONC 34 g/dl (31.0-36.0); MEAN CORPUSCULAR VOLUME 88 fL (82-100); MONOCYTES # (AUTO) 0.3 /CMM (0.1-1.30); MONOCYTES % (AUTO) 1.4 % (2.0-12.0); NEUTROPHILS # (AUTO) 19.1 /CMM (1.8-8.9); NEUTROPHILS % (AUTO) 94.5 % (43.0-81.0); PLATELET COUNT (AUTO) 107 /CMM (150-450); RDW COEFFICIENT OF VARIATION 20.7 (11.5-15.0); RED BLOOD CELL COUNT(AUTO) 2.04 MIL/uL (4.0-5.2); WHITE BLOOD COUNT (AUTO) 20.2 K/uL (4.3-11.0)
[2017-12-22 04:48] LABS: CALCIUM, SERUM 9.7 mg/dL (8.5-10.1); CREATININE 0.9 mg/dL (0.6-1.3); GLUCOSE 182 mg/dL (74-106); UREA NITROGEN, BLOOD 50 mg/dL (7-18)
[2017-12-22 04:53] LABS: CARBON DIOXIDE 21 mmol/L (21-32); CHLORIDE 95 mmol/L (98-107); POTASSIUM 3.3 mmol/L (3.5-5.1); SODIUM SERUM 129 mmol/L (136-145)
[2017-12-22 05:15] LABS: HEMATOCRIT 18 % (33-45); HEMOGLOBIN 6.1 g/dL (11.5-14.8)
[2017-12-22 05:37] LABS: BAND % (MANUAL) 2 % (0.0-5.0); LYMPHOCYTES % (MANUAL) 4 % (16-48); MONOCYTES % (MANUAL) 3 % (0-11.0); MYELOCYTES % 1 % (0-0); NEUTROPHILS % (MANUAL) 90 (42-76)
[2017-12-22] MEDS: FLUDROCORTISONE 0.1 MG TABLET GT SCH ×3 (05:37→17:34)
[2017-12-22] MEDS: PIPERACILLIN /TAZOBACTAM 3.375 G in IV D5W 50 ML IV SCH ×3 (05:37→17:34)
--- NOTE | 2017-12-22 07:25 | NUR ---
PATIENT WITH LOW HGB 6.1 FABRIC CUTTER,CARINA COVINGTON NOTIFIED WITH ORDER TO GIVE ONE UNIT PRBC. REPORT GIVEN TO SHELDON JUSTIN FOR KIERA.
--- NOTE | 2017-12-22 07:45 | NUR ---
INITIAL SPEAKING UNIT ASSEMBLER NOTE RCVD PT ABLE TO OPEN EYES SPONTANEOUSLY TO NAME, ST ON TELE. TOLERATING ORDERED VENT SETTINGS. PEG PLACEMENT VERIFIED BY AUSCULTATION/ASPIRATION. PT OFF TUBE FEEDING, NO RESIDUAL OBTAINED. DAMARI MIDLINE C/D/I/PATENT. NO S/O INFILTRATION/PHLEBITIS OBSERVED UPON FLUSHING, IVF INFUSING. WILL CONTINUE TO MONITOR PT FOR SAFETY AND COMFORT. BED IN LOW AND LOCKED POSITION.
[2017-12-22] MEDS ORDERED: DC PROPOFOL WHEN EXTUBATED XX PRN (08:00)
[2017-12-22] MEDS: LACTOBACILLUS RHAMNOSUS GG 1 EACH CAP.SPRINK GT SCH ×2 (08:03→17:34)
[2017-12-22] MEDS: VIT B CMPLX 3/FA/VIT C/BIOTIN 1 TAB TABLET GT SCH (08:03)
[2017-12-22] MEDS: ASCORBIC ACID 500 MG TABLET GT SCH (08:03)
[2017-12-22] MEDS: LEVOTHYROXINE SODIUM 100 MCG TABLET GT SCH (08:03)
[2017-12-22] MEDS: HYDROGEL DRESSING 90 GM TUBE TP SCH (08:04)
[2017-12-22] MEDS: HYDROCORTISONE SOD SUCCINATE 100 MG/2 ML VIAL IV SCH ×3 (08:04→17:34)
[2017-12-22] MEDS: PROSOURCE / PROSTAT (PYXIS) 30 ML UDC GT SCH ×3 (08:04→17:34)
[2017-12-22] MEDS: Z GUARD REMEDY 2 OZ OINT TP SCH (08:04)
--- NOTE | 2017-12-22 08:11 | NUR ---
HELPER MARBLE FINISHER NOTE DR. SCHULZ IN UNIT INFORMED OF RECOMMENDATION TO REMOVE HD ACCESS AND SEND CATH FOR CX. HE WILL LET DR. ABDULLAHI KNOW TO REMOVE CATH.
--- NOTE | 2017-12-22 08:59 | NUR ---
RT NOTE RECEIVED PT MECHANICALLY VENTILATED VIA PORTEX 8 TRACHEOSTOMY TUBE. TRACH MIDLINE AND SECURE CUFF INFLATED. SETTINGS PRESCRIBED. BILATERAL CHEST RISE NOTED. THICK PALE YELLOW SECRETIONS FOUND UPON SUCTION. DIMINISHED BREATH SOUNDS HEARD UPON AUSCULTATION. ALARMS SET PER PROTOCOL AND AUDIBLE. VENT PLUGGED IN TO RED OUTLET. AMBU BAG AT BED SIDE. NO DISTRESS NOTED AT MOMENT. WILL CONTINUE TO MONITOR.
[2017-12-22 09:34] LABS: ABG OXYGEN SATURATION 92.9 % (92.0-98.5); ABG PCO2 48.9 mmHg (35.0-45.0); ABG PH 7.264 (7.350-7.450); ABG PO2 69.8 mmHg (75.0-100.0); AaDO2 231.7 mmHg; COHb 0.8 % (0.5-1.5); MetHb 0.9 % (0.0-1.5); O2Hb 91.3 % (94.0-97.0); PEEP,BG 0 cm H2O; SITE, ABG Right Radial; VENT MODE, BG AC 18 550 50% +0; VT, ABG 550 mL
[2017-12-22] MEDS ORDERED: CELLULOSE,OXIDIZED 1 EACH EACH MC ONE (11:00)
[2017-12-22] MEDS ORDERED: POTASSIUM CHLORIDE 20 MEQ POWDER PACKET GT SCH (11:00)
--- NOTE | 2017-12-22 11:24 | NUR ---
WET ROOM WORKER NOTE DR. JEFF INFORMED OF ABG RESULTS RECOMMENDED CHANGE TIDAL VOLUME TO 600. ORDER ENTERED AND RT NOTIFIED OF CHANGE.
--- NOTE | 2017-12-22 14:29 | NUR ---
ROCK STAR NOTE PT TOLERATED BLOOD TRANSFUSION DURING DIALYSIS. NO S/O ADVERSE REACTIONS OBSERVED. VITAL SIGNS REMAIN STABLE. WILL CONTINUE TO MONITOR.
[2017-12-22] MEDS: NEPRO 1,000 ML BOTTLE GT SCH (15:29)
[2017-12-22 18:26] LABS: OCCULT BLOOD STOOL POSITIVE (NEGATIVE)
[2017-12-22 18:36] LABS: HEMATOCRIT 22 % (33-45); HEMOGLOBIN 7.1 g/dL (11.5-14.8); LYMPHOCYTES # (AUTO) 0.5 /CMM (0.8-4.8); LYMPHOCYTES % (AUTO) 3.1 % (20.0-44.0); MEAN CORPUSCULAR HGB CONC 33 g/dl (31.0-36.0); MEAN CORPUSCULAR VOLUME 90 fL (82-100); MONOCYTES # (AUTO) 0.2 /CMM (0.1-1.30); MONOCYTES % (AUTO) 0.9 % (2.0-12.0); NEUTROPHILS # (AUTO) 16.3 /CMM (1.8-8.9); PLATELET COUNT (AUTO) 78 /CMM (150-450); RDW COEFFICIENT OF VARIATION 17.6 (11.5-15.0)
--- NOTE | 2017-12-22 18:44 | NUR ---
EXTENSION SERVICE SPECIALIST NOTE NO CHANGE IN PT'S CONDITION. PT REMAINS STABLE TOLERATING ORDERED VENT SETTINGS. DOPAMINE TITRATED DOWN TO 4 MCG. PT'S CARE WILL BE ENDORSED TO CRUDE OIL TREATER RN FOR CONTINUITY OF CARE. BED IN LOW AND LOCKED POSITION. DAMARI MIDLINE REPLACED TO PICC. MIDLINE CATH TIP SENT OUT FOR CULTURE.
[2017-12-22] MEDS: PANTOPRAZOLE 40 MG VIAL IV SCH (20:53)
[2017-12-23] VITALS (88 sets, daily range): BP systolic 66–132; BP diastolic 39–85
[2017-12-23] MEDS: PIPERACILLIN /TAZOBACTAM 3.375 G in IV D5W 50 ML IV SCH ×5 (00:58→23:53)
[2017-12-23] MEDS: FLUDROCORTISONE 0.1 MG TABLET GT SCH ×5 (00:58→23:53)
[2017-12-23] MEDS: IPRATROPIUM NEB FS 0.5 MG/2.5 ML AMPUL.NEB NEB SCH ×6 (04:21→23:49)
[2017-12-23] MEDS: ALBUTEROL FS 2.5 MG/0.5 ML VIAL.NEB NEB SCH ×6 (04:21→23:49)
[2017-12-23] MEDS: DOPamine 400 MG in IV D5W 250 ML IV PRN ×2 (04:25→19:20)
[2017-12-23 05:06] LABS: CALCIUM, SERUM 9.1 mg/dL (8.5-10.1); CARBON DIOXIDE 20 mmol/L (21-32); CHLORIDE 94 mmol/L (98-107); EOSINOPHILS % (AUTO) 0.1 % (0.0-6.0); GLUCOSE 181 mg/dL (74-106); HEMATOCRIT 24 % (33-45); LYMPHOCYTES % (AUTO) 4.1 % (20.0-44.0); MEAN CORPUSCULAR HGB CONC 34 g/dl (31.0-36.0); MEAN CORPUSCULAR VOLUME 88 fL (82-100); MONOCYTES # (AUTO) 0.1 /CMM (0.1-1.30); MONOCYTES % (AUTO) 0.6 % (2.0-12.0); NEUTROPHILS # (AUTO) 22.4 /CMM (1.8-8.9); NEUTROPHILS % (AUTO) 95.2 % (43.0-81.0); PLATELET COUNT (AUTO) 98 /CMM (150-450); RDW COEFFICIENT OF VARIATION 17.4 (11.5-15.0); RED BLOOD CELL COUNT(AUTO) 2.67 MIL/uL (4.0-5.2); SODIUM SERUM 130 mmol/L (136-145); UREA NITROGEN, BLOOD 72 mg/dL (7-18); WHITE BLOOD COUNT (AUTO) 23.5 K/uL (4.3-11.0)
[2017-12-23 05:11] LABS: POTASSIUM 2.8 mmol/L (3.5-5.1)
--- NOTE | 2017-12-23 06:00 | NUR ---
ASSISTANT WRESTLING COACH - REC'D PT. LAST NOC, VENTED,PEGGED & ON DOPAMINE GTT. AT 4 MCG/KG/MIN. AT VA, RN WAS ABLE TO TITRATE GTT. DOWN TO 3 MCG/KG/MIN. MAP >65. PT.IS ANURIC & A DIALYSIS PT. RT.UPPER C/W HD CATH DRSG. CHANGED. LEFT HAND DRSG. CHANGED. PT. HAD A VERY LARGE BM, SO LEFT BUTTOCKS DRSG. CHANGED, ALONG W/COMPLETE BEDBATH ADM. RUE SKIN TEAR DRSG. CHANGED. AM LABS DRAWN VIA LUE PICC LINE. K+ WAS 2.8 THIS AM. CARINA GARCIA PHONED. ORDERS REC'D & ORDERED IN COMPUTER. AFEBRILE. 3+ EDEMA TO ALL EXT. AC-18,TV-600 & 50%. PEG HAS NEPRO TF INFUSING AT 60CC/HR. CONT. POC.
[2017-12-23 06:08] LABS: LYMPHOCYTES % (MANUAL) 6 % (16-48); NEUTROPHILS % (MANUAL) 94 (42-76)
[2017-12-23] MEDS ORDERED: POTASSIUM CHLORIDE 20 MEQ TAB.PRT.SR PO ONE (07:00)
[2017-12-23 07:57] LABS: INR 0.96 (0.87-1.13)
[2017-12-23] MEDS: LEVOTHYROXINE SODIUM 100 MCG TABLET GT SCH (07:58)
--- NOTE | 2017-12-23 08:00 | NUR ---
INITIAL COSTUME SEAMSTRESS NOTE RCVD PT ABLE TO OPEN EYES AND FOLLOW SOME SIMPLE COMMANDS SUCH OPEN MOUTH, EYES. SR ON TELE. NO S/O DISTRESS OBSERVED. PEG PLACEMENT VERIFIED BY AUSCULTATION/ASPIRATION. NO RESIDUAL OBTAINED. DAMARI PICC C/D/I/PATENT. NO S/O INFILTRATION/PHLEBITIS OBSERVED IVF INFUSING. NEPHRO STOPPED ORDERED. WILL CONTINUE TO MONITOR PT FOR SAFETY AND COMFORT. BED IN LOW AND LOCKED POSITION.
[2017-12-23] MEDS: LACTOBACILLUS RHAMNOSUS GG 1 EACH CAP.SPRINK GT SCH ×2 (08:03→17:08)
[2017-12-23] MEDS: HYDROCORTISONE SOD SUCCINATE 100 MG/2 ML VIAL IV SCH ×3 (08:03→17:08)
[2017-12-23] MEDS: VIT B CMPLX 3/FA/VIT C/BIOTIN 1 TAB TABLET GT SCH (08:03)
[2017-12-23] MEDS: ASCORBIC ACID 500 MG TABLET GT SCH (08:03)
[2017-12-23] MEDS: Z GUARD REMEDY 2 OZ OINT TP SCH (08:04)
[2017-12-23] MEDS: HYDROGEL DRESSING 90 GM TUBE TP SCH (08:04)
[2017-12-23] MEDS: PROSOURCE / PROSTAT (PYXIS) 30 ML UDC GT SCH ×3 (08:06→17:08)
[2017-12-23] MEDS ORDERED: POTASSIUM CHLORIDE 20 MEQ POWDER PACKET GT ONE (08:30)
[2017-12-23] MEDS ORDERED: POTASSIUM CHLORIDE 20 MEQ POWDER PACKET NG SCH (08:30)
[2017-12-23 08:46] LABS: THYROID STIMULATING HORMONE 10.793 uIU/mL (0.358-3.74)
--- NOTE | 2017-12-23 11:25 | NUR ---
RT NOTE PT IN STABLE CONDITION. PT MECHANICALLY VENTILATED VIA PORTEX 8 CUFFED TRACH TUBE. TRACH MIDLINE AND SECURE. CUFF INFLATED BY CYBER OPS PLANNER. SETTINGS PRESCRIBED. ALARMS SET PER PROTOCOL AND AUDIBLE. VENT PLUGGED IN TO RED OUTLET. AMBU BAG AT BED SIDE. NO DISTRESS NOTED AT MOMENT. WILL CONTINUE TO MONITOR.
--- NOTE | 2017-12-23 12:02 | NUR ---
CNA LTC NOTE DR. ABDULLAHI IN UNIT INFORMED OF PT'S BLEEDING FROM MOUTH, AND ARM WOUNDS. PLATELETS LOW. HE RECOMMENDED AGAINST REMOVING DIALYSIS CATH TODAY., PT'S AT BEDSIDE AWARE. WILL CONTINUE TO MONITOR PT FOR BLEEDING. MD AWARE OF K 2.8 AND 40 MEQ REPLACED. NO ADDITIONAL ORDER GIVEN.
--- NOTE | 2017-12-23 13:26 | NUR ---
MEDICATION NOTE PER ONLY 40 MEQ REPLACEMENT OF KCl TO BE GIVEN. SECOND 40 MEQ DISCONTINUED.
[2017-12-23] MEDS: NEPRO 1,000 ML BOTTLE GT SCH (15:24)
[2017-12-23 16:07] LABS: ABG BASE EXCESS -9.1 mmol/L; ABG OXYGEN SATURATION 94.2 % (92.0-98.5); ABG PCO2 34.3 mmHg (35.0-45.0); ABG PH 7.299 (7.350-7.450); AaDO2 239.9 mmHg; COHb 0.3 % (0.5-1.5); MetHb 0.7 % (0.0-1.5); O2Hb 93.3 % (94.0-97.0); PEEP,BG 0 cm H2O; SITE, ABG Right Radial; VENT MODE, BG AC 18 600 50% +0; VT, ABG 600 mL
--- NOTE | 2017-12-23 19:00 | NUR ---
SERVICE ORDER DISPATCHER NOTES RECEIVED PATIENT ON THE VENTILATOR ON AC MODE,AWAKE,EYES OPEN WITH GOOD EYE CONTACT,DOES NOT SEEM TO UNDERSTAND.NO MOVEMENT NOTED ALL EXTREMITIES.EXTREMELY EDEMATOUS ALL OVER ,PICC LINE DAMARI. ON DOPAMINE DRIP FOR BP SUPPORT.G TUBE WITH ON GOING FEEDING.COMFORT CARE DONE,NEEDS ATTENDED.
--- NOTE | 2017-12-23 19:21 | NUR ---
ANVIL SEATING PRESS OPERATOR NOTE NO CHANGE IN PT'S CONDITION. SBP MAINTAINED WITH DOPAMINE, SR ON TELE. TOLERATING ORDERED VENT SETTINGS AND TUBE FEEDING RATE. PT'S AT BEDSIDE. PT'S CARE ENDORSED TO HOME HEALTH ASSISTANT RN FOR CONTINUITY OF CARE. BED IN LOW AND LOCKED POSITION.
[2017-12-23] MEDS: PANTOPRAZOLE 40 MG VIAL IV SCH (20:40)
--- NOTE | 2017-12-23 21:50 | NUR ---
PT RECEIVED TRACHED PTX 8 ON VENT. NO RESP DISTRESS NOTED. PT TOLERATING VENT SETTINGS. SX'D FOR MOD AMT OF THICK YELLOW SECRETIONS. NOTICED PT MOUTH IS BLEEDING RN AWARE. VENT ALARMS SET AND AUDIBLE. AMBU BAG AT BEDSIDE. VENT PLUGGED INTO RED OUTLET. WILL CONTINUE TO MONITOR. Addendum: 12/23/17 at 2152 by GREYSON MAGALLANES RT Amended: Links added.
[2017-12-24] VITALS (83 sets, daily range): BP systolic 69–136; BP diastolic 48–105
--- NOTE | 2017-12-24 | NUR ---
CONDENSER TUBE TENDER NOTES REMAINS STABLE,BP IN THE LOW 100'S WITH 3 MCG/KG/MIN OF DOPAMINE DRIP.NEURO STATUS UNCHANGED,AWAKE,BUT CAN NOT FOLLOW COMMANDS. NOTED TO BE BLEEDING IN HER LIPS(KUMAR POST ORAL CARE),WILL GENTLY DO ORAL CARE. 0400 AM CARE DONE,RIGHT ARM SKIN TEAR STILL BLEEDING A LOT,DRESSING CHANGED ,APPLIED SURGICEL.LEFT HAND DRESSING CHANGED.
[2017-12-24] MEDS: ALBUTEROL FS 2.5 MG/0.5 ML VIAL.NEB NEB SCH ×5 (03:38→19:23)
[2017-12-24] MEDS: IPRATROPIUM NEB FS 0.5 MG/2.5 ML AMPUL.NEB NEB SCH ×5 (03:38→19:24)
[2017-12-24 04:59] LABS: LYMPHOCYTES # (AUTO) 0.6 /CMM (0.8-4.8); LYMPHOCYTES % (AUTO) 2.6 % (20.0-44.0); MEAN CORPUSCULAR HGB CONC 34 g/dl (31.0-36.0); MEAN CORPUSCULAR VOLUME 87 fL (82-100); MONOCYTES # (AUTO) 0.3 /CMM (0.1-1.30); MONOCYTES % (AUTO) 1.4 % (2.0-12.0); NEUTROPHILS # (AUTO) 23.8 /CMM (1.8-8.9); PLATELET COUNT (AUTO) 88 /CMM (150-450); RDW COEFFICIENT OF VARIATION 17.7 (11.5-15.0); RED BLOOD CELL COUNT(AUTO) 2.29 MIL/uL (4.0-5.2); WHITE BLOOD COUNT (AUTO) 24.8 K/uL (4.3-11.0)
[2017-12-24 05:17] LABS: ALANINE AMINOTRANSFERASE 18 U/L (12-78); ALBUMIN 1.7 g/dL (3.4-5.0); ALKALINE PHOSPHATASE 200 U/L (46-116); ASPARTATE AMINOTRANSFERASE 19 U/L (15-37); BILIRUBIN,TOTAL 0.4 mg/dL (0.2-1.0); CALCIUM, SERUM 9.4 mg/dL (8.5-10.1); CARBON DIOXIDE 20 mmol/L (21-32); CHLORIDE 93 mmol/L (98-107); CREATININE 1.2 mg/dL (0.6-1.3); GLUCOSE 168 mg/dL (74-106); PHOSPHORUS 5.6 mg/dL (2.5-4.9); POTASSIUM 3.4 mmol/L (3.5-5.1); SODIUM SERUM 128 mmol/L (136-145); TOTAL PROTEIN, SERUM 5.2 g/dL (6.4-8.2)
[2017-12-24 05:24] LABS: HEMATOCRIT 20 % (33-45); HEMOGLOBIN 6.8 g/dL (11.5-14.8)
[2017-12-24 05:36] LABS: UREA NITROGEN, BLOOD 101 mg/dL (7-18)
[2017-12-24] MEDS: FLUDROCORTISONE 0.1 MG TABLET GT SCH ×2 (05:36→11:28)
[2017-12-24] MEDS: PIPERACILLIN /TAZOBACTAM 3.375 G in IV D5W 50 ML IV SCH ×4 (05:37→23:51)
[2017-12-24 05:41] LABS: BAND % (MANUAL) 3 % (0.0-5.0); LYMPHOCYTES % (MANUAL) 5 % (16-48); MONOCYTES % (MANUAL) 2 % (0-11.0); NEUTROPHILS % (MANUAL) 88 (42-76)
[2017-12-24 05:42] LABS: METAMYELOCYTES % 1 % (0-0); MYELOCYTES % 1 % (0-0)
--- NOTE | 2017-12-24 07:00 | NUR ---
UNDERGROUND FOREMAN NOTES CALLED hattie GRESHAM TO REPORT HGB=6.8,LEFT MESSAGE TO THE VOICE MAIL,ALSO TEXT MESSAGE LEFT. REQUESTED 1 UNIT PRBC ,FOR POSSIBLE TRANSFUSION WITH HEMODIALYSIS TODAY. REPORT GIVEN TO KATTY CHUNG
[2017-12-24] MEDS: LEVOTHYROXINE SODIUM 100 MCG TABLET GT SCH (08:30)
[2017-12-24] MEDS: VIT B CMPLX 3/FA/VIT C/BIOTIN 1 TAB TABLET GT SCH (09:13)
[2017-12-24] MEDS: LACTOBACILLUS RHAMNOSUS GG 1 EACH CAP.SPRINK GT SCH ×2 (09:14→17:38)
[2017-12-24] MEDS: ASCORBIC ACID 500 MG TABLET GT SCH (09:14)
[2017-12-24] MEDS: HYDROGEL DRESSING 90 GM TUBE TP SCH (09:14)
[2017-12-24] MEDS: HYDROCORTISONE SOD SUCCINATE 100 MG/2 ML VIAL IV SCH ×3 (09:14→17:38)
[2017-12-24] MEDS: Z GUARD REMEDY 2 OZ OINT TP SCH (09:15)
[2017-12-24] MEDS: PROSOURCE / PROSTAT (PYXIS) 30 ML UDC GT SCH ×3 (09:23→17:38)
[2017-12-24] MEDS ORDERED: POTASSIUM CHLORIDE 20 MEQ POWDER PACKET GT SCH (11:00)
[2017-12-24] MEDS ORDERED: EPOETIN ALFA (10,000 UNIT) 10,000 UNIT/ML VIAL IV ONE (11:00)
--- NOTE | 2017-12-24 12:56 | NUR ---
COMPENSATION BUSINESS PARTNER DF PT HGB OF 6.8. CALLED PHARMACY FOR EPOGEN DUE AT 1100. PER HD RN KISHOR PT WILL HAVE HEMODIALYSIS TODAY. INFORMED HD RN FOR NEED FOR 1 UPRBC DURING HD WITH EPOGEN.
[2017-12-24] MEDS: ACETAMINOPHEN 325 MG TABLET MC PRN (14:47)
--- NOTE | 2017-12-24 14:52 | NUR ---
FURNACE MAINTENANCE DF PT NEPRO TUBE FEEDING CHANGED TO 40ML/HR X 24 HOURS PER DIETARY/MD ORDERS. PT HEMODIALYSIS STARTED NOW. ORDER TO TRANSFUSE 1 UPRBC. HD RN TO ASK FOR 1 UPRBC WHEN READY TO TRANSFUSE WITH HD.
[2017-12-24] MEDS ORDERED: NEPRO 1,000 ML BOTTLE GT SCH (15:00)
--- NOTE | 2017-12-24 15:33 | NUR ---
MANAGER PRODUCT SUPPORT DF PT 1UPRBC VERIFIED BY 2 RN,S. 1UPRBC TO BE TRANSFUSED DURING HD.
[2017-12-24] MEDS: DOPamine 400 MG in IV D5W 250 ML IV PRN (15:44)
--- NOTE | 2017-12-24 15:58 | NUR ---
RN DISCHARGE DF PRBC TRANSFUSIONS COMPLETED VIA HEMODIALYSIS. NO S/S OF ADVERSE REACTION NOTED.
--- NOTE | 2017-12-24 17:55 | NUR ---
PUNCH OPERATOR DF PT DOPAMINE GTT TITRATED TO 1MCG BP OF 136/75 ATTEMPT TO TITRATE PT OFF DOPAMINE WILL TITRATE FOR EFFECT.
--- NOTE | 2017-12-24 17:56 | NUR ---
PT WITH LARGE AMOUNT OF LIQUID STOOL AND FEDDING RESIDUAL OF 100ML. ORDER TO HOLD FOR 2 HOURS AND RECHECK RESIDUALS.
--- NOTE | 2017-12-24 19:00 | NUR ---
COLOR MAKER FORMULATOR NOTES RECEIVED PATIENTEITHN TRACHEOSTOMY ON THE VENTILATOR ON AC MODE,NOT IN DISTRESS,BREATHING REGULAR AND NON LABORED.AWAKE,ALERT,SEEMS TO UNDERSTAND,QUADRPLEGIC,,GRIMACES TO PAIN,.BLEEDING FROM HER LIPS/MOUTH( GENTLE ORAL CARE DONE)G TUBE FEEDING RESUMED( RESIDUAL IS NOW 50 ML)ASPIRATION PRECAUTION OBSERVED.PICC LINE VIA DAMARI ,WITH DRESING DRY AND INTACT.COMFORT CARE DONE, AT BEDSIDE SUPPORTIVE OF PATIENT.
--- NOTE | 2017-12-24 20:00 | NUR ---
FEEDING RESIDUAL NOW 50 ML,FEEDING RESUMED AT 60 ML/HR 2200 fEEDING RESIDUAL 150 ML. FEEDING HELD AGAIN.
[2017-12-24] MEDS: PANTOPRAZOLE 40 MG VIAL IV SCH (20:13)
[2017-12-25] VITALS (85 sets, daily range): BP systolic 87–145; BP diastolic 31–91
--- NOTE | 2017-12-25 | NUR ---
FEEDING RESIDUAL=30 ML,FEEDING RESUMED AT 40 ML/HR
[2017-12-25] MEDS: IPRATROPIUM NEB FS 0.5 MG/2.5 ML AMPUL.NEB NEB SCH ×7 (00:09→23:33)
[2017-12-25] MEDS: ALBUTEROL FS 2.5 MG/0.5 ML VIAL.NEB NEB SCH ×7 (00:09→23:32)
--- NOTE | 2017-12-25 04:00 | NUR ---
MARKETING MANAGER NOTES AM CARE /TRACHE CARE DONE.STILL WITH BLEEDING FROM THE MOUTH/LIPS.DECUB CARE DONE. TOLERARING FEEDING AT 40 ML/HR.([id number]) ,CONTIUNED AT 40 ML/HR
[2017-12-25 05:07] LABS: HEMATOCRIT 24 % (33-45); HEMOGLOBIN 8.1 g/dL (11.5-14.8); LYMPHOCYTES # (AUTO) 0.8 /CMM (0.8-4.8); LYMPHOCYTES % (AUTO) 3.4 % (20.0-44.0); MEAN CORPUSCULAR HGB CONC 34 g/dl (31.0-36.0); MEAN CORPUSCULAR VOLUME 87 fL (82-100); MONOCYTES # (AUTO) 0.3 /CMM (0.1-1.30); MONOCYTES % (AUTO) 1.3 % (2.0-12.0); NEUTROPHILS # (AUTO) 23.3 /CMM (1.8-8.9); NEUTROPHILS % (AUTO) 95.3 % (43.0-81.0); PLATELET COUNT (AUTO) 75 /CMM (150-450); RDW COEFFICIENT OF VARIATION 16.6 (11.5-15.0); RED BLOOD CELL COUNT(AUTO) 2.72 MIL/uL (4.0-5.2); WHITE BLOOD COUNT (AUTO) 24.5 K/uL (4.3-11.0)
[2017-12-25 05:13] LABS: CALCIUM, SERUM 9.1 mg/dL (8.5-10.1); CARBON DIOXIDE 21 mmol/L (21-32); CHLORIDE 97 mmol/L (98-107); CREATININE 0.9 mg/dL (0.6-1.3); GLUCOSE 143 mg/dL (74-106); SODIUM SERUM 134 mmol/L (136-145); UREA NITROGEN, BLOOD 73 mg/dL (7-18)
[2017-12-25 05:26] LABS: POTASSIUM 2.8 mmol/L (3.5-5.1)
[2017-12-25] MEDS: PIPERACILLIN /TAZOBACTAM 3.375 G in IV D5W 50 ML IV SCH ×4 (05:55→23:24)
[2017-12-25] MEDS ORDERED: POTASSIUM CHLORIDE 20 MEQ POWDER PACKET GT SCH (07:00)
[2017-12-25] MEDS ORDERED: POTASSIUM CHLORIDE 20 MEQ POWDER PACKET GT ONE ×2 (07:00→11:30)
--- NOTE | 2017-12-25 08:00 | NUR ---
ICU/RN: INITIAL NOTES,AM RECEIVED REPORT FROM NIGHT NURSE. RECEIVED PT ALERT, OPENS EYES, DOES NOT FOLLOW COMMANDS. TRACH PORTEX #8 TO VENT WITH SETTINGS ORDERED BY MD, NO ACUTE DISTRESS NOTED AT THIS TIME. PT SINUS ON TELE. LOW DOSE DOPAMINE INFUSING FOR BP SUPPORT, WILL TITRATE DOWN PER PROTOCOL. GTUBE FEEDING INFUSING ORDERED, TOLERATING, WILL CONTINUE TO MONITOR FOR RESIDUALS. PT ANURIC. PICC LINE PATENT AND INTACT, NO S/S OF INFECTION OR INFILTRATION NOTED. PT TURNED AND REPOSITIONED. HD SCHEDULED FOR TODAY. ALL NEEDS WILL BE ATTENDED TO, SAFETY MEASURES TAKEN, BED IN LOW POSITION, SIDE RAILS UP, CALL LIGHT WITHIN REACH. WILL CONTINUE CARE.
[2017-12-25] MEDS: VIT B CMPLX 3/FA/VIT C/BIOTIN 1 TAB TABLET GT SCH (08:15)
[2017-12-25] MEDS: ASCORBIC ACID 500 MG TABLET GT SCH (08:15)
[2017-12-25] MEDS: LEVOTHYROXINE SODIUM 100 MCG TABLET GT SCH (08:15)
[2017-12-25] MEDS: PROSOURCE / PROSTAT (PYXIS) 30 ML UDC GT SCH ×3 (08:15→17:25)
[2017-12-25] MEDS: HYDROCORTISONE SOD SUCCINATE 100 MG/2 ML VIAL IV SCH ×3 (08:15→17:26)
[2017-12-25] MEDS: LACTOBACILLUS RHAMNOSUS GG 1 EACH CAP.SPRINK GT SCH ×2 (08:15→17:26)
[2017-12-25] MEDS: HYDROGEL DRESSING 90 GM TUBE TP SCH (08:16)
[2017-12-25] MEDS: Z GUARD REMEDY 2 OZ OINT TP SCH (08:16)
[2017-12-25] MEDS ORDERED: POTASSIUM CHLORIDE 20 MEQ POWDER PACKET NG SCH (09:00)
--- NOTE | 2017-12-25 14:15 | NUR ---
ICU/RN: END HEMODIALYSIS, 2.2 LITERS OFF. VSS. LOW DOSE DOPAMINE, TITRATING PER PROTOCOL
--- NOTE | 2017-12-25 17:26 | NUR ---
ICU/RN: DOPAMINE OFF. BP STABLE. WILL CONTINUE TO MONITOR AND ASSESS
--- NOTE | 2017-12-25 18:00 | NUR ---
ICU/RN: 3 LOOSE STOOLS. PER ORDERS RECTAL TUBE INSERTED. STOOL SAMPLE SENT. MANDATORY FORM FILLED OUT.
[2017-12-25] MEDS ORDERED: FEE PK DOSING 1 MIN EA MC ONE (18:29)
--- NOTE | 2017-12-25 18:36 | NUR ---
ICU/RN ENDING NOTES,AM REPORT WILL BE ENDORSED TO NIGHT NURSE FOR CONTINUATION OF CARE. ALL NEEDS ATTENDED TO. PT ON VENT SETTINGS ORDERED BY MD, NO DISTRESS NOTED. SINUS ON TELE. BED BATH GIVEN. LINENS CHANGED, WOUND CARE DONE. TUBE FEEDING INFUSING, TOLERATING, SOME RESIDUAL NOTED. HD DONE, 2.2 LITERS OFF. AT BEDSIDE, ALL QUESTIONS ANSWERED.
[2017-12-25] MEDS ORDERED: GENTAMICIN 80 MG in IV NS 0.9% 50 ML IV SCH (20:00)
[2017-12-25] MEDS: PANTOPRAZOLE 40 MG VIAL IV SCH (20:07)
--- NOTE | 2017-12-25 20:07 | NUR ---
PT RECEIVED TRACHED PTX 8 ON VENT. NO RESP DISTRESS NOTED. PT TOLERATING VENT SETTINGS. SX'D FOR MOD AMT OF THICK YELLOW SECRETIONS. VENT ALARMS SET AND AUDIBLE. AMBU BAG AT BEDSIDE. VENT PLUGGED INTO RED OUTLET. WILL CONTINUE TO MONITOR. Addendum: 12/25/17 at 2007 by GREYSON MAGALLANES RT Amended: Links added.
--- NOTE | 2017-12-25 20:51 | NUR ---
received pt from day shift, alert, follows commands at times, quadriplegic, SR, on the vent, lungs congested, edema throughout, GT to feeding tolerates well, anuric HD pt, v/s stable, no pain, pt turned and repositioned, family at the bedside.
[2017-12-26] VITALS (41 sets, daily range): BP systolic 96–131; BP diastolic 51–76
--- NOTE | 2017-12-26 00:11 | NUR ---
pt is resting in the bed, v/s stable, no pain, pt turned and repositioned q2hrs.
[2017-12-26] MEDS: ALBUTEROL FS 2.5 MG/0.5 ML VIAL.NEB NEB SCH ×6 (03:21→23:33)
[2017-12-26] MEDS: IPRATROPIUM NEB FS 0.5 MG/2.5 ML AMPUL.NEB NEB SCH ×6 (03:21→23:33)
--- NOTE | 2017-12-26 04:37 | NUR ---
pt is resting in the bed, no acute distress overnight, alert, follows simple commands, tolerates feeding, v/s stable, no pain, pt cleaned, changed and repositioned q2hrs.
[2017-12-26 04:43] LABS: BASOPHILS # (AUTO) 0.1 /CMM (0.0-0.2); BASOPHILS % (AUTO) 0.3 % (0.0-2.0); HEMATOCRIT 21 % (33-45); HEMOGLOBIN 7.1 g/dL (11.5-14.8); LYMPHOCYTES % (AUTO) 4.2 % (20.0-44.0); MEAN CORPUSCULAR HGB CONC 34 g/dl (31.0-36.0); MEAN CORPUSCULAR VOLUME 87 fL (82-100); MONOCYTES # (AUTO) 0.3 /CMM (0.1-1.30); MONOCYTES % (AUTO) 1.4 % (2.0-12.0); NEUTROPHILS # (AUTO) 22.8 /CMM (1.8-8.9); NEUTROPHILS % (AUTO) 94.1 % (43.0-81.0); PLATELET COUNT (AUTO) 114 /CMM (150-450); RDW COEFFICIENT OF VARIATION 17.5 (11.5-15.0); RED BLOOD CELL COUNT(AUTO) 2.41 MIL/uL (4.0-5.2); WHITE BLOOD COUNT (AUTO) 24.2 K/uL (4.3-11.0)
[2017-12-26 04:56] LABS: CALCIUM, SERUM 8.7 mg/dL (8.5-10.1); CARBON DIOXIDE 23 mmol/L (21-32); CHLORIDE 97 mmol/L (98-107); CREATININE 0.8 mg/dL (0.6-1.3); GLUCOSE 158 mg/dL (74-106); POTASSIUM 3.2 mmol/L (3.5-5.1); SODIUM SERUM 136 mmol/L (136-145); UREA NITROGEN, BLOOD 52 mg/dL (7-18)
[2017-12-26] MEDS: PIPERACILLIN /TAZOBACTAM 3.375 G in IV D5W 50 ML IV SCH ×4 (05:06→23:26)
[2017-12-26 05:09] LABS: BAND % (MANUAL) 5 % (0.0-5.0); LYMPHOCYTES % (MANUAL) 6 % (16-48); MONOCYTES % (MANUAL) 5 % (0-11.0); NEUTROPHILS % (MANUAL) 84 (42-76)
[2017-12-26] MEDS: HYDROCORTISONE SOD SUCCINATE 100 MG/2 ML VIAL IV SCH ×3 (08:33→17:12)
[2017-12-26] MEDS: LEVOTHYROXINE SODIUM 100 MCG TABLET GT SCH (08:33)
[2017-12-26] MEDS: LACTOBACILLUS RHAMNOSUS GG 1 EACH CAP.SPRINK GT SCH ×2 (08:34→17:12)
[2017-12-26] MEDS: ASCORBIC ACID 500 MG TABLET GT SCH (08:34)
[2017-12-26] MEDS: PROSOURCE / PROSTAT (PYXIS) 30 ML UDC GT SCH ×3 (08:34→17:12)
[2017-12-26] MEDS: HYDROGEL DRESSING 90 GM TUBE TP SCH (08:34)
[2017-12-26] MEDS: VIT B CMPLX 3/FA/VIT C/BIOTIN 1 TAB TABLET GT SCH (08:34)
[2017-12-26] MEDS: Z GUARD REMEDY 2 OZ OINT TP SCH (08:34)
--- NOTE | 2017-12-26 09:15 | NUR ---
ICU/RN: Dr Avalos at bedside; updated on pt status. Notified of drop in hgb today. Aware of OBS +, oral bleed. HD ongoing. Will cont to monitor pt.
--- NOTE | 2017-12-26 10:00 | NUR ---
ICU/RN: Dr Townsend at bedside; updated on pt status. HD ongoing. Abn labs and status dw MD. No new orders for blood transfusion.
[2017-12-26] MEDS ORDERED: ALBUMIN 25% 25 GM in PREMIX 1 EA IV ONE (10:30)
[2017-12-26] MEDS: POTASSIUM CHLORIDE 20 MEQ POWDER PACKET NG SCH ×2 (10:33→11:02)
--- NOTE | 2017-12-26 12:00 | NUR ---
ICU/RN: Pt off HD, 2.5L out. Tolerated well. Remains off pressors. at bedside; updated and agreeable with POC.
[2017-12-26] MEDS: GENTAMICIN 120 MG in IV D5W 50 ML IV PRN (15:23)
--- NOTE | 2017-12-26 19:30 | NUR ---
RN URGENT CARE INITIAL NOTE RECEIVED PATIENT AWAKE, ALERT, ABLE TO MOUTH NEEDS, VENT DEPENDENT. AT BEDSIDE. DENIES PAIN OR DISCOMFORT. NO RESPIRATORY DISTRESS NOTED, WITH VENT SETTINGS AC 22, TV 600, FIO2 40%, PEEP 10. TRACH PATENT AND INTACT. ON TELE MONITOR SR. WITH GT PATENT AND INTACT, IN PLACE. TOLERATING GTF. WITH FLEXISEAL IN PLACE. WITH DAMARI PICC LINE PATENT AND INTACT, TKO. NO N/V NOTED. SKIN WARM AND DRY TO TOUCH. HOB ELEVATED. SIDE RAILS UP AND LOCKED. TURNED AND REPOSITIONED Q2 AND PRN. WILL CONTINUE TO MONITOR.
[2017-12-26] MEDS: PANTOPRAZOLE 40 MG VIAL IV SCH (20:59)
[2017-12-27] VITALS (28 sets, daily range): BP systolic 101–141; BP diastolic 57–89
[2017-12-27] MEDS: ACETAMINOPHEN 325 MG TABLET MC PRN (02:46)
[2017-12-27] MEDS: ALBUTEROL FS 2.5 MG/0.5 ML VIAL.NEB NEB SCH ×6 (04:44→23:51)
[2017-12-27] MEDS: IPRATROPIUM NEB FS 0.5 MG/2.5 ML AMPUL.NEB NEB SCH ×6 (04:44→23:51)
[2017-12-27 04:50] LABS: LYMPHOCYTES # (AUTO) 0.9 /CMM (0.8-4.8); LYMPHOCYTES % (AUTO) 5.2 % (20.0-44.0); MEAN CORPUSCULAR HGB CONC 33 g/dl (31.0-36.0); MEAN CORPUSCULAR VOLUME 90 fL (82-100); MONOCYTES # (AUTO) 0.2 /CMM (0.1-1.30); MONOCYTES % (AUTO) 0.9 % (2.0-12.0); NEUTROPHILS # (AUTO) 17.1 /CMM (1.8-8.9); NEUTROPHILS % (AUTO) 93.9 % (43.0-81.0); PLATELET COUNT (AUTO) 111 /CMM (150-450); RDW COEFFICIENT OF VARIATION 17.5 (11.5-15.0); RED BLOOD CELL COUNT(AUTO) 2.12 MIL/uL (4.0-5.2); WHITE BLOOD COUNT (AUTO) 18.2 K/uL (4.3-11.0)
[2017-12-27] MEDS: PIPERACILLIN /TAZOBACTAM 3.375 G in IV D5W 50 ML IV SCH (05:02)
[2017-12-27] MEDS: NEPRO 1,000 ML BOTTLE GT PRN (05:02)
[2017-12-27 05:13] LABS: CARBON DIOXIDE 25 mmol/L (21-32); CHLORIDE 100 mmol/L (98-107); CREATININE 0.7 mg/dL (0.6-1.3); GLUCOSE 139 mg/dL (74-106); MAGNESIUM 1.9 mg/dL (1.8-2.4); PHOSPHORUS 3.3 mg/dL (2.5-4.9); SODIUM SERUM 138 mmol/L (136-145); UREA NITROGEN, BLOOD 40 mg/dL (7-18)
[2017-12-27 05:22] LABS: HEMATOCRIT 19 % (33-45); HEMOGLOBIN 6.3 g/dL (11.5-14.8)
[2017-12-27 05:34] LABS: POTASSIUM 2.7 mmol/L (3.5-5.1)
--- NOTE | 2017-12-27 05:49 | NUR ---
BAKE ROOM WORKER NOTE RELAYED CRITICAL LABS RESULTS TO CARINA COVINGTON POTASSIUM 2.7, HGB 6.3, HCT 19. WITH NEW ORDERS FOR KLOR CON 40MEQ VIA GT ONCE, AND ONE UNIT PRBC TRANSFUSION. NOTED AND CARRIED OUT. WILL CONTINUE TO MONITOR.
[2017-12-27 05:57] LABS: BAND % (MANUAL) 2 % (0.0-5.0); LYMPHOCYTES % (MANUAL) 8 % (16-48); METAMYELOCYTES % 1 % (0-0); MONOCYTES % (MANUAL) 1 % (0-11.0); MYELOCYTES % 1 % (0-0)
[2017-12-27 05:58] LABS: NEUTROPHILS % (MANUAL) 87 (42-76)
[2017-12-27] MEDS ORDERED: POTASSIUM CHLORIDE 20 MEQ POWDER PACKET GT ONE (06:00)
--- NOTE | 2017-12-27 07:15 | NUR ---
CARPET CUTTER NOTES RECEIVED PATIENT AOX1 ABLE TO FOLLOW COMMANDS ,NOT IN ACUTE DISTRESS ,RESPIRATIONS EVEN AND UNLABORED , SPO2 OF 100% VIA MECHANICAL VENT SETTING ORDERED , TRACH OF PORTEX # [address] , SR 80 ON BEDSIDE MONITOR , GT PATENT AND INTACT WITH NEPHRO @ 40ML/HR INFUSING WELL WITH NO RESIDUALS NOTED , FLEXI SEAL DRAINING WITH BLACK LIQUID TARRY STOOLS , DAMARI PICC LINE PATENT AND INTACT WITH NS @ TKO . YANICK # 22 PATENT AND INTACT , R CHEST WALL HD CATH C/D/I , ALL NEEDS ATTENDED , BED ON LOW AND LOCKED POSITION , SIDE RAILS X2 , CALL LIGHT WITHIN REACH , WILL CONTINUE TO MONITOR .
--- NOTE | 2017-12-27 07:46 | NUR ---
WATCH REPAIR PERSON CLOSING NOTE NO SIGNIFICANT CHANGES OVERNIGHT. NO N/V. NO RESPIRATORY DISTRESS. TOLERATING GTF, TOLERATING VENT SETTINGS. KEPT CLEAN AND DRY. WOUND TX PROVIDED. TURNED AND REPOSITIONED Q2 AND PRN. HOB ELEVATED. SIDE RAILS UP AND LOCKED. BED KEPT AT LOWEST POSITION. CONTINUITY OF CARE ENDORSED TO AM NURSE.
[2017-12-27] MEDS: VIT B CMPLX 3/FA/VIT C/BIOTIN 1 TAB TABLET GT SCH (08:27)
[2017-12-27] MEDS: LACTOBACILLUS RHAMNOSUS GG 1 EACH CAP.SPRINK GT SCH ×2 (08:27→16:36)
[2017-12-27] MEDS: ASCORBIC ACID 500 MG TABLET GT SCH (08:27)
[2017-12-27] MEDS: PROSOURCE / PROSTAT (PYXIS) 30 ML UDC GT SCH ×3 (08:27→16:37)
[2017-12-27] MEDS: LEVOTHYROXINE SODIUM 100 MCG TABLET GT SCH (08:27)
[2017-12-27] MEDS: HYDROCORTISONE SOD SUCCINATE 100 MG/2 ML VIAL IV SCH ×2 (08:27→12:10)
[2017-12-27] MEDS: Z GUARD REMEDY 2 OZ OINT TP SCH (08:28)
[2017-12-27] MEDS: HYDROGEL DRESSING 90 GM TUBE TP SCH (08:28)
[2017-12-27 08:56] LABS: ABG BASE EXCESS 1.2 mmol/L; ABG OXYGEN SATURATION 92.7 % (92.0-98.5); ABG PCO2 31.1 mmHg (35.0-45.0); ABG PH 7.509 (7.350-7.450); ABG PO2 63.2 mmHg (75.0-100.0); AaDO2 186.2 mmHg; COHb 0.3 % (0.5-1.5); MetHb 0.4 % (0.0-1.5); O2Hb 92.1 % (94.0-97.0); PEEP,BG 0 cm H2O; SITE, ABG Right Radial; VT, ABG 600 mL
--- NOTE | 2017-12-27 08:58 | NUR ---
ASSISTANT TECHNICIAN NOTES RT NOTIFIED DR JEFF REGARDING ABG RESULT AND CURRENT VENT SETTINGS , PER MD CHANGE RATE TO 16 , RT AT BEDSIDE .
--- NOTE | 2017-12-27 09:00 | NUR ---
PRODUCTION AIDE NOTES PATIENT ON SEDATION VACATION , DIPRIVAN ON HOLD , BILATERAL SOFT WRIST RESTRAINS IN PLACE , WILL CONTINUE TO MONITOR
--- NOTE | 2017-12-27 09:00 | NUR ---
VENT CHANGES BELOW ORDER: 16 RATE Addendum: 12/27/17 at 0901 by MARY CAMPA RT Amended: Links added.
--- NOTE | 2017-12-27 10:03 | NUR ---
VAULT CUSTODIAN NOTES SEEN AND EVALUATED BY DR WATERMAN , DISCUSSED LABS , PENDING 1 UNIT PRBC , V/S STABLE , AFEBRILE , OFF DOPAMINE , ON FLEXISEAL DRAINING WITH DARK LIQUID OUTPUT , ,MD AWARE . VERIFIED ORDER TO TRANSFER PT TO [facility] , PER MD OK TO TRANSFER , HE WILL F/U WITH GI FOR PLAN OF CARE
--- NOTE | 2017-12-27 10:30 | NUR ---
CEMENT MIXER NOTES SEEN AND EVALUATED BY DR MORROW . DISCUSSED LABS , TOLERATING CURRENT VENT SETTING , V/S STABLE AFEBRILE , PENDING 1 UNIT PRBC , VERIFIED IF PT IS SCHEDULED FOR HD 1 UNIT PRBC IS PENDING , PER MD NO HD TODAY , OK TO GIVE 1 UNIT PRBC WITHOUT HD X4 HOURS , K REPLACED ORDERED , PER MD RE CHECK K LEVEL AFTER BLOOD TRANSFUSION . ORDERS CARRIED OUT
[2017-12-27] MEDS: PIPERACILLIN /TAZOBACTAM 2.25 G in IV D5W 100 ML IV SCH ×3 (11:00→23:35)
--- NOTE | 2017-12-27 11:42 | NUR ---
GRADES 9 THRU 12 VISITING TEACHER NOTES PT STABLE PRIOR TO BT , AFEBRILE , V/S STABLE WILL MONITOR FOR ANY TRANSFUSION REACTION AFTER 15 MINUTES , MD ORDERED TO TRANSFUSE BLOOD X4 HOURS ,
--- NOTE | 2017-12-27 12:42 | NUR ---
pt. transferred from icu to 112-1. PT. USED SAME MECH VENT, PLUGGED INTO RED OUTLET WITH AMBU BAG @ BEDSIDE. Addendum: 12/27/17 at 1244 by MARY CAMPA RT Amended: Links added.
--- NOTE | 2017-12-27 12:59 | NUR ---
BUFFING WHEEL FORMER AUTOMATIC NOTES 1230 REPORT GIVEN TO BILL CHUNG FOR CONTINUITY OF CARE 1242 TRANSFERED PT TO ROOM 112-1 VIA ACLS PROTOCOL , CURRENTLY STABLE , AFEBRILE , NO KIERA NOTED , TOLERATING CURRENT VENT SETTING , WITH ONGOING BT @ 80ML/HR , GT FEEDING OF NEPHRO @ 40ML/HR WITH NO RESIDUALS NOTED , FLEXIS EAL INTACT , BEDSIDE REPORT GIVEN TO BILL CHUNG
--- NOTE | 2017-12-27 13:00 | NUR ---
RN NOTES RECEIVED PT FROM ICU. VENT/TRACH DEPENDENT, TOLERATING VENT SETTINGS NO SOB OR DISTRESS. A&0X1,ABLE TO MOUTH OUT SOME WORDS, NOD. SR ON THE TELE TYRON HR 86. GTF AT 40ML/HR, TOLERATING WELL. 1 UNIT OF PRBC TRANSFUSING, NO FEVERS/CHILLS. AT BEDSIDE. BED LOCKED AND IN LOWEST POSITION, CALL LIGHT WITHIN REACH, SIDE RAILS UPX3, WILL CONT TO TYRON.
[2017-12-27] MEDS: PANTOPRAZOLE 40 MG VIAL IV SCH (16:37)
--- NOTE | 2017-12-27 18:34 | NUR ---
RN NOTES PT REMAINED IN STABLE CONDITION THROUGHOUT THE SHIFT, NO SIGNIFICANT CHANGES NOTED. ALL NEEDS MET. WILL ENDORSE TO ONCOMING SHIFT.
--- NOTE | 2017-12-27 19:20 | NUR ---
RN ELVI NOTE RECEIVED PATIENT RESTING IN BED AOX1-2, EASILY AROUSABLE, TRACH TO MECHANICAL VENT ON SETTINGS ORDERED, TELE SR 83, NO CARDIAC OR RESPIRATORY DISTRESS NOTED, G TUBE PATENT FLUSHING WELL WITH NEPRO AT 40ML/HR, DAMARI PICC SITE CDI, PATENT FLUSHES WELL, NS TKO, YANICK # 20G IV, SITE CDI, PATENT FLUSHING WELL SALINE LOCK, R CHEST HD CATH, SITE BENIGN, EGD DUE TOMORROW AM, NPO AFTER MIDNIGHT, CONSENTS SIGNED. SAFETY MAINTAINED AT ALL TIMES, BED IN LOW LOCKED POSITION, CALL LIGHT WITHIN REACH, WILL CONTINUE TO MONITOR FOR ANY CHANGES IN CONDITION.
[2017-12-28] VITALS: BP 141/66
[2017-12-28] MEDS: ALBUTEROL FS 2.5 MG/0.5 ML VIAL.NEB NEB SCH ×6 (03:23→23:24)
[2017-12-28] MEDS: IPRATROPIUM NEB FS 0.5 MG/2.5 ML AMPUL.NEB NEB SCH ×6 (03:23→23:24)
[2017-12-28 04:00] VITALS: BP 152/77
[2017-12-28] MEDS: PIPERACILLIN /TAZOBACTAM 2.25 G in IV D5W 100 ML IV SCH ×2 (05:48→12:33)
[2017-12-28 06:30] LABS: CARBON DIOXIDE 24 mmol/L (21-32); CHLORIDE 100 mmol/L (98-107); CREATININE 0.8 mg/dL (0.6-1.3); GENTAMICIN,TROUGH 1.4 ug/ml (0.2-2.0); GLUCOSE 99 mg/dL (74-106); POTASSIUM 2.9 mmol/L (3.5-5.1); SODIUM SERUM 139 mmol/L (136-145); UREA NITROGEN, BLOOD 59 mg/dL (7-18)
--- NOTE | 2017-12-28 07:05 | NUR ---
RN NOTE RECEIVED PATIENT ON BED, OBTUNDED, VENT/ TRACH DEPENDENT , TRACH CARE DONE, TOLERATING CURRENT VENT SETTING WELL, ON TELE SR HR IN 70'S ,NPO THIS AM FOR EGD, G TUBE CLAMPED , DAMARI PICC SITE CDI, PATENT FLUSHES WELL, R CHEST HD CATH, SITE CDI, BENIGN, SAFETY MAINTAINED AT ALL TIMES, BED IN LOW LOCKED POSITION, SR UP x3, CALL LIGHT WITHIN REACH, WILL CONTINUE TO MONITOR CLOSLY .
[2017-12-28 07:40] LABS: EOSINOPHILS % (AUTO) 0.9 % (0.0-6.0); HEMATOCRIT 22 % (33-45); HEMOGLOBIN 7.3 g/dL (11.5-14.8); LYMPHOCYTES # (AUTO) 1.1 /CMM (0.8-4.8); LYMPHOCYTES % (AUTO) 5.3 % (20.0-44.0); MEAN CORPUSCULAR HGB CONC 34 g/dl (31.0-36.0); MEAN CORPUSCULAR VOLUME 88 fL (82-100); MONOCYTES # (AUTO) 0.1 /CMM (0.1-1.30); MONOCYTES % (AUTO) 0.5 % (2.0-12.0); NEUTROPHILS # (AUTO) 18.8 /CMM (1.8-8.9); NEUTROPHILS % (AUTO) 93.3 % (43.0-81.0); PLATELET COUNT (AUTO) 153 /CMM (150-450); RDW COEFFICIENT OF VARIATION 17.2 (11.5-15.0); RED BLOOD CELL COUNT(AUTO) 2.47 MIL/uL (4.0-5.2); WHITE BLOOD COUNT (AUTO) 20.1 K/uL (4.3-11.0)
[2017-12-28 08:00] VITALS: BP 141/45
--- NOTE | 2017-12-28 08:00 | NUR ---
RT RECEIVED PT TRACH ON VENT WITH NOTED SETTINGS. TRACH IS SECURE AND INTACT. PT TOLERATING VENT SETTINGS WELL. SX WITH MOD THK DARK RED SECRETIONS. NO RESP DISTRESS NOTED. AMBU BAG NOTED AT THE HOB. VENT PLUGGED IN RED OUTLET. WILL CONTINUE TO MONITOR.
--- NOTE | 2017-12-28 08:00 | NUR ---
RN NOTES HD NURSE NOTIFIED REGARDING K=2.9 , PT IS GOING TO HAVE DIALYSIS THIS AM
[2017-12-28] MEDS: PROSOURCE / PROSTAT (PYXIS) 30 ML UDC GT SCH ×3 (08:35→16:28)
[2017-12-28] MEDS: LEVOTHYROXINE SODIUM 100 MCG TABLET GT SCH (08:35)
[2017-12-28] MEDS: PANTOPRAZOLE 40 MG VIAL IV SCH ×2 (08:35→16:28)
[2017-12-28] MEDS: Z GUARD REMEDY 2 OZ OINT TP SCH (08:37)
[2017-12-28] MEDS: HYDROGEL DRESSING 90 GM TUBE TP SCH (08:37)
[2017-12-28] MEDS: LACTOBACILLUS RHAMNOSUS GG 1 EACH CAP.SPRINK GT SCH ×3 (09:00→16:29)
[2017-12-28] MEDS ORDERED: HYDROCORTISONE SOD SUCCINATE 100 MG/2 ML VIAL IV SCH (09:00)
[2017-12-28 10:44] LABS: BAND % (MANUAL) 5 % (0.0-5.0); EOSINOPHILS % (MANUAL) 1 % (0-4); LYMPHOCYTES % (MANUAL) 5 % (16-48); MONOCYTES % (MANUAL) 1 % (0-11.0); NEUTROPHILS % (MANUAL) 88 (42-76)
--- NOTE | 2017-12-28 11:00 | NUR ---
RN NOTES DR WATERMAN NOTIFED REGARDING K=2.9, NO NEW ORDER GIVEN
[2017-12-28 12:00] VITALS: BP 120/67
[2017-12-28] MEDS ORDERED: LIDOCAINE 1% INJ 50 ML MDV IJ ONE (12:33)
[2017-12-28] MEDS ORDERED: LIDOCAINE 1%-EPI 1:100,000 20 ML VIAL ONE (12:34)
--- NOTE | 2017-12-28 14:00 | NUR ---
RN NOTES DR WATERMAN NOTIFED REGARDING K=2.7 , NEW ORDER GIVEN .
[2017-12-28] MEDS: GENTAMICIN 120 MG in IV D5W 50 ML IV PRN (14:10)
[2017-12-28] MEDS: ASCORBIC ACID 500 MG TABLET GT SCH (14:11)
[2017-12-28] MEDS: VIT B CMPLX 3/FA/VIT C/BIOTIN 1 TAB TABLET GT SCH (14:15)
[2017-12-28] MEDS ORDERED: POTASSIUM CHLORIDE 10 MEQ/50 ML PREMIXED IVPB FOR PERIPHERAL LINE IV ONE (15:00)
[2017-12-28] MEDS ORDERED: POTASSIUM CHLORIDE 20 MEQ POWDER PACKET GT ONE (15:00)
[2017-12-28] MEDS: Potassium Chloride 10 MEQ in IV D5W 50 ML IV SCH ×4 (15:39→18:44)
[2017-12-28 16:00] VITALS: BP_SYST 135; BP_SYST 174; BP_DIAS 57; BP_DIAS 58
[2017-12-28] MEDS: NEPRO 1,000 ML BOTTLE GT PRN (16:39)
[2017-12-28] MEDS: TAZOBACTAM IV SCH ×2 (17:26→23:28)
[2017-12-28] MEDS: NS 0.9% IV SCH ×2 (17:26→23:28)
[2017-12-28] MEDS: PIPERACILLIN IV SCH ×2 (17:26→23:28)
[2017-12-28] MEDS: ACETAMINOPHEN 325 MG TABLET MC PRN (18:20)
--- NOTE | 2017-12-28 18:49 | NUR ---
RN NOTES PT STABLE , TRACH CARE DONE , TF AT 40CC/HR RUNNING VIA GT , NO RESIDUAL NOTED, SUPPORTIVE FAMILY AT THE BEDSIDE, L UPPER ARM PICC LINE CDI, SR UP x3, CALL LIGHT WITHIN EASY REACH, WILL ENDOSE TO NEWSPAPER MANAGER NURSE FOR KIERA .
--- NOTE | 2017-12-28 19:15 | NUR ---
RN ELVI NOTE RECEIVED PATIENT RESTING IN BED AOX1, AT BEDSIDE, TRACH TO MECHANICAL VENT ON SETTINGS ORDERED, TELE SR 74, NO CARDIAC OR RESPIRATORY DISTRESS NOTED, G TUBE PATENT FLUSHING WELL WITH NEPRO AT 40ML/HR, DAMARI PICC SITE CDI, PATENT FLUSHES WELL, NS TKO, R CHEST HD CATH, SITE BENIGN, INCONTINENT, FLEXISEAL IN PLACE DRAINING TO GRAVITY. SKIN KEPT CLEAN AND DRY. SAFETY MAINTAINED AT ALL TIMES, BED IN LOW LOCKED POSITION, CALL LIGHT WITHIN REACH, WILL CONTINUE TO MONITOR FOR ANY CHANGES IN CONDITION
--- NOTE | 2017-12-28 19:28 | NUR ---
RT NOTE: RECEIVED TRACH PT ON VENT ON NOTED SETTINGS. TRACH SIZE PORTEX 8. TRACH IS SECURED AND PATENT. WOOD POLE TREATER DONE. NO RESP DISTRESS NOTED. SX'D MOD AMT OF THICK YELLOW SECRETIONS. VENT ALARMS SET AND AUDIBLE. AMBU BAG AT BEDSIDE. VENT PLUGGED INTO RED OUTLET. Q4 BREATHING TX GIVEN MD ORDERED. WILL CONTINUE TO MONITOR.
[2017-12-28 20:00] VITALS: BP 110/90
[2017-12-29] VITALS (13 sets, daily range): BP systolic 124–156; BP diastolic 40–90
[2017-12-29] MEDS: ACETAMINOPHEN 325 MG TABLET MC PRN ×2 (00:27→14:36)
[2017-12-29] MEDS: ALBUTEROL FS 2.5 MG/0.5 ML VIAL.NEB NEB SCH ×6 (03:17→23:34)
[2017-12-29] MEDS: IPRATROPIUM NEB FS 0.5 MG/2.5 ML AMPUL.NEB NEB SCH ×6 (03:17→23:34)
[2017-12-29] MEDS: TAZOBACTAM IV SCH ×4 (05:21→23:35)
[2017-12-29] MEDS: NS 0.9% IV SCH ×4 (05:21→23:35)
[2017-12-29] MEDS: PIPERACILLIN IV SCH ×4 (05:21→23:35)
[2017-12-29 06:54] LABS: CALCIUM, SERUM 8.8 mg/dL (8.5-10.1); CARBON DIOXIDE 23 mmol/L (21-32); CHLORIDE 103 mmol/L (98-107); CREATININE 0.8 mg/dL (0.6-1.3); GLUCOSE 115 mg/dL (74-106); POTASSIUM 4.5 mmol/L (3.5-5.1); SODIUM SERUM 140 mmol/L (136-145); UREA NITROGEN, BLOOD 48 mg/dL (7-18)
--- NOTE | 2017-12-29 07:05 | NUR ---
RN NOTES RECEIVED PT ON BED, A/Ox1, VENT/TRACH DEPENDENT , TRACH CARE SUCTIONING DONE, ON TELE SR HR IN 90'S , TF NEPRO AT 40CC/HR RUNNING VIA GT , TOLERATING WELL, NO RESIDUAL NOTED, L UPPER ARM PICC LINE SITE CDI, FLEXISEAL RUNNING WITH DARK LOOSE STOOL , SR UP x3, CALL LIGHT WITHIN EASY REACH, BED LOCKED AND IN LOWEST POSITION , CONTINUE TO MONITOR PT CLOSELY
[2017-12-29] MEDS: PROSOURCE / PROSTAT (PYXIS) 30 ML UDC GT SCH ×3 (08:14→16:50)
[2017-12-29] MEDS: LACTOBACILLUS RHAMNOSUS GG 1 EACH CAP.SPRINK GT SCH ×2 (08:14→16:50)
[2017-12-29] MEDS: VIT B CMPLX 3/FA/VIT C/BIOTIN 1 TAB TABLET GT SCH (08:14)
[2017-12-29] MEDS: LEVOTHYROXINE SODIUM 100 MCG TABLET GT SCH (08:15)
[2017-12-29] MEDS: ASCORBIC ACID 500 MG TABLET GT SCH (08:15)
[2017-12-29] MEDS: PANTOPRAZOLE 40 MG VIAL IV SCH ×2 (08:15→16:50)
[2017-12-29] MEDS: HYDROGEL DRESSING 90 GM TUBE TP SCH (08:16)
[2017-12-29] MEDS: Z GUARD REMEDY 2 OZ OINT TP SCH (08:16)
[2017-12-29 10:09] LABS: BASOPHILS % (AUTO) 0.2 % (0.0-2.0); EOSINOPHILS % (AUTO) 0.8 % (0.0-6.0); LYMPHOCYTES # (AUTO) 0.6 /CMM (0.8-4.8); MEAN CORPUSCULAR HGB CONC 33 g/dl (31.0-36.0); MEAN CORPUSCULAR VOLUME 89 fL (82-100); MONOCYTES # (AUTO) 0.3 /CMM (0.1-1.30); MONOCYTES % (AUTO) 2.2 % (2.0-12.0); NEUTROPHILS # (AUTO) 14.2 /CMM (1.8-8.9); NEUTROPHILS % (AUTO) 92.8 % (43.0-81.0); PLATELET COUNT (AUTO) 174 /CMM (150-450); RDW COEFFICIENT OF VARIATION 19.1 (11.5-15.0); RED BLOOD CELL COUNT(AUTO) 2.29 MIL/uL (4.0-5.2); WHITE BLOOD COUNT (AUTO) 15.3 K/uL (4.3-11.0)
[2017-12-29 10:38] LABS: HEMOGLOBIN 6.6 g/dL (11.5-14.8)
[2017-12-29 10:39] LABS: HEMATOCRIT 20 % (33-45)
[2017-12-29 10:42] LABS: BAND % (MANUAL) 1 % (0.0-5.0); LYMPHOCYTES % (MANUAL) 7 % (16-48); MONOCYTES % (MANUAL) 1 % (0-11.0); NEUTROPHILS % (MANUAL) 91 (42-76)
--- NOTE | 2017-12-29 10:44 | NUR ---
RN NOTES H/H 6.6/ 20.4 DR WATERMAN NOTIFIED.
--- NOTE | 2017-12-29 18:00 | NUR ---
RN NOTES PT STABLE , TOLERATING VENT SETTING WELL, TF NEPRO AT 40CC/HR RUNNING VIA GT , NO RESIDUAL NOTED, PT RECEIVED ONE UNIT OF PRBC ON THIS SHIFT , SR UP x3, CALL LIGHT WITHIN EASY REACH, BED LOCKED AND IN LOWEST POSITION , WILL ENDORSE TO SHIPPING ORDER CLERK NURSE FOR KIERA
--- NOTE | 2017-12-29 19:29 | NUR ---
TD RN NOTES RECEIVED PT ON BED. A/O X1 WITH ON THE BEDSIDE. ON MECH VENT SETTING SATURATING WELL. ON FLEXISEAL. ON TELE MONITOR SR 97. ON GTUBE FEEDING NO RESIDUAL. IV ACCESS ON DAMARI PICC TKO. RUNNING WELL AND INTACT. HEAD OF BED ELEVATED. SIDE RAILS UP. CALL LIGHT WITHIN REACH. BED ALARM ON. WILL CONTINUE TO MONITOR PT CLOSELY.
--- NOTE | 2017-12-29 22:00 | NUR ---
TD RN NOTES PER PT . NOT TO GIVE BED BATH AND WOUND CARE SO THAT THE PATIENT CAN SLEEP WELL SINCE SHE DOES NOT HAVE ANY SLEEP IN THE PREVIOUS NIGHT PER PT .
[2017-12-29] MEDS: NEPRO 1,000 ML BOTTLE GT PRN (22:25)
[2017-12-30] VITALS: BP 152/68
[2017-12-30] MEDS: ACETAMINOPHEN 325 MG TABLET MC PRN (02:35)
[2017-12-30] MEDS: IPRATROPIUM NEB FS 0.5 MG/2.5 ML AMPUL.NEB NEB SCH ×6 (02:59→23:56)
[2017-12-30] MEDS: ALBUTEROL FS 2.5 MG/0.5 ML VIAL.NEB NEB SCH ×6 (03:00→23:56)
[2017-12-30 04:00] VITALS: BP 152/62
[2017-12-30] MEDS: TAZOBACTAM IV SCH ×3 (05:14→17:31)
[2017-12-30] MEDS: PIPERACILLIN IV SCH ×3 (05:14→17:31)
[2017-12-30] MEDS: NS 0.9% IV SCH ×3 (05:14→17:31)
[2017-12-30 06:36] LABS: EOSINOPHILS % (AUTO) 1.5 % (0.0-6.0); HEMATOCRIT 21 % (33-45); HEMOGLOBIN 7.2 g/dL (11.5-14.8); LYMPHOCYTES % (AUTO) 6.9 % (20.0-44.0); MEAN CORPUSCULAR HGB CONC 34 g/dl (31.0-36.0); MEAN CORPUSCULAR VOLUME 89 fL (82-100); MONOCYTES # (AUTO) 0.2 /CMM (0.1-1.30); MONOCYTES % (AUTO) 1.6 % (2.0-12.0); PLATELET COUNT (AUTO) 176 /CMM (150-450); RDW COEFFICIENT OF VARIATION 17.8 (11.5-15.0); WHITE BLOOD COUNT (AUTO) 14.5 K/uL (4.3-11.0)
[2017-12-30 06:49] LABS: CALCIUM, SERUM 8.6 mg/dL (8.5-10.1); CARBON DIOXIDE 22 mmol/L (21-32); CHLORIDE 103 mmol/L (98-107); CREATININE 0.8 mg/dL (0.6-1.3); GLUCOSE 102 mg/dL (74-106); POTASSIUM 4.2 mmol/L (3.5-5.1); SODIUM SERUM 140 mmol/L (136-145); UREA NITROGEN, BLOOD 74 mg/dL (7-18)
--- NOTE | 2017-12-30 06:49 | NUR ---
TD RN NOTES NO ACUTE CHANGES NOTED DURING THE SHIFT. PROVIDED COMFORT AND SAFETY. DUE MEDS GIVEN. WILL ENDORSE TO THE AM NURSE FOR KIERA.
--- NOTE | 2017-12-30 07:02 | NUR ---
RT PATIENT REC'D TRACHED ON [facility] VENT WITH NOTED SETTINGS MAEGAN WELL. VENT ALARMS CHECKED + AUDIBLE. CUFF PRESSURE CHECKED ASSISTANT OPERATOR. SX'D WITH MOD AMT PALE SEMI THICK SECRETIONS. MERLYN TUCKER AT HOB Addendum: 12/30/17 at 0930 by CECILIO ZUÑIGA RT Amended: Links added.
--- NOTE | 2017-12-30 07:40 | NUR ---
RN NOTE RECEIVED PATIENT IN BED ASLEEP. HOB ELEVATED FOR COMFORT AND ONGOING FEEDINGS. ALERT AND ORIENTED X1, PATIENT IS ABLE TO OPEN EYES WITH VERBAL AND TACTILE STIMULI. ON MECH VENT WITH APPROPRIATE SETTING SATURATING WELL. ON LABEL MAKER OF SINUS RHYTHM HR OF 92. PATIENT HAS FLEXISEAL IN PLACE. GT SITE INTACT AND PATENT WITH NO RESIDUALS NOTED. IV SITE INTACT AND PATENT. BED LOCKED AND LOW POSITION. PLACED CALL LIGHT WITHIN REACH. WILL CONTINUE TO MONITOR PATIENT CLOSELY.
[2017-12-30] MEDS: LEVOTHYROXINE SODIUM 100 MCG TABLET GT SCH (07:59)
[2017-12-30 08:00] VITALS: BP 116/55
[2017-12-30] MEDS: PROSOURCE / PROSTAT (PYXIS) 30 ML UDC GT SCH ×3 (08:45→16:09)
[2017-12-30] MEDS: VIT B CMPLX 3/FA/VIT C/BIOTIN 1 TAB TABLET GT SCH (08:46)
[2017-12-30] MEDS: LACTOBACILLUS RHAMNOSUS GG 1 EACH CAP.SPRINK GT SCH ×2 (08:48→16:09)
[2017-12-30] MEDS: ASCORBIC ACID 500 MG TABLET GT SCH (08:48)
[2017-12-30] MEDS: PANTOPRAZOLE 40 MG VIAL IV SCH ×2 (08:49→16:09)
[2017-12-30] MEDS: HYDROGEL DRESSING 90 GM TUBE TP SCH (08:51)
[2017-12-30] MEDS: Z GUARD REMEDY 2 OZ OINT TP SCH (08:52)
--- NOTE | 2017-12-30 09:00 | NUR ---
RN NOTE PATIENT HAD DIALYSIS TODAY 2L OUTPUT. ALSO 2 SETS OF BLOOD CULTURES COLLECTED AND CORPORATE ADMINISTRATOR FROM LAB.
[2017-12-30 12:00] VITALS: BP 106/54
[2017-12-30 16:00] VITALS: BP 108/57
--- NOTE | 2017-12-30 18:55 | NUR ---
RN NOTE PATIENT REMAINED STABLE THROUGHOUT SHIFT. NO ACUTE CHANGES OR DISTRESS NOTED. PATIENT CONTINUED WITH ONGOING FEEDINGS. WILL ENDORSE TO NEXT SHIFT TO CONTINUE CONTINUITY OF CARE.
[2017-12-30 20:00] VITALS: BP 130/64
--- NOTE | 2017-12-30 22:46 | NUR ---
RN NOTE RECEIVED PATIENT IN BED ASLEEP. HOB ELEVATED FOR COMFORT AND ONGOING FEEDINGS. ALERT AND ORIENTED X1, PATIENT IS ABLE TO OPEN EYES WITH VERBAL AND TACTILE STIMULI. ON [facility] VENT WITH APPROPRIATE SETTING SATURATING WELL. ON MEDICAL APPOINTMENT CLERK OF SINUS RHYTHM HR OF 95. PATIENT HAS FLEXISEAL IN PLACE. GT SITE INTACT AND PATENT WITH NO RESIDUALS NOTED. IV SITE INTACT AND PATENT. BED LOCKED AND LOW POSITION. PLACED CALL LIGHT WITHIN REACH. WILL CONTINUE TO MONITOR PATIENT CLOSELY. Addendum: 12/30/17 at 2246 by NATI TURCIOS RN 1999
[2017-12-31] VITALS (17 sets, daily range): BP systolic 105–152; BP diastolic 58–83
[2017-12-31] MEDS: TAZOBACTAM IV SCH ×5 (01:11→23:32)
[2017-12-31] MEDS: PIPERACILLIN IV SCH ×5 (01:11→23:32)
[2017-12-31] MEDS: NS 0.9% IV SCH ×5 (01:11→23:32)
[2017-12-31] MEDS: IPRATROPIUM NEB FS 0.5 MG/2.5 ML AMPUL.NEB NEB SCH ×6 (03:36→23:49)
[2017-12-31] MEDS: ALBUTEROL FS 2.5 MG/0.5 ML VIAL.NEB NEB SCH ×6 (03:36→23:49)
[2017-12-31] MEDS: NEPRO 1,000 ML BOTTLE GT PRN (05:01)
--- NOTE | 2017-12-31 06:38 | NUR ---
RN NOTE ENDORSED PATIENT IN BED ASLEEP. HOB ELEVATED FOR COMFORT AND ONGOING FEEDINGS. ALERT AND ORIENTED X1, PATIENT IS ABLE TO OPEN EYES WITH VERBAL AND TACTILE STIMULI. ON MECH VENT WITH APPROPRIATE SETTING SATURATING WELL. ON METER TESTER OF SINUS RHYTHM HR OF 97. STILL WITH BLOODY TRACHIAL AND ORAL SECRETION PATIENT HAS FLEXISEAL IN PLACE. GT SITE INTACT AND PATENT WITH NO RESIDUALS NOTED. IV SITE INTACT AND PATENT. BED LOCKED AND LOW POSITION. PLACED CALL LIGHT WITHIN REACH. WILL CONTINUE TO MONITOR PATIENT CLOSELY.
[2017-12-31 07:21] LABS: CALCIUM, SERUM 8.6 mg/dL (8.5-10.1); CARBON DIOXIDE 24 mmol/L (21-32); CHLORIDE 103 mmol/L (98-107); CREATININE 0.8 mg/dL (0.6-1.3); GLUCOSE 113 mg/dL (74-106); POTASSIUM 3.7 mmol/L (3.5-5.1); SODIUM SERUM 142 mmol/L (136-145); UREA NITROGEN, BLOOD 72 mg/dL (7-18)
--- NOTE | 2017-12-31 07:40 | NUR ---
ELVI RN NOTE PATIENT IN BED , ALL NEEDS ATTENDED WIT TRACH TO VENT SETTING ORDERED, AMBU BAG AT HOB , WITH G TUBE FEEDING ORDERED KEEP HOB ELEVATED AT ALL TIME, LT UPPER ARM PICC LINE IN PLACE, BED IN LOWEST AND LOCKED POSITION , CALL LGHTWITHIN REACH WITH RECTAL FLEXICEAL TUBE IN PLACE WILL CONT TO MONITOR CLOSELY
[2017-12-31] MEDS: VIT B CMPLX 3/FA/VIT C/BIOTIN 1 TAB TABLET GT SCH (08:35)
[2017-12-31] MEDS: PANTOPRAZOLE 40 MG VIAL IV SCH (08:35)
[2017-12-31] MEDS: LACTOBACILLUS RHAMNOSUS GG 1 EACH CAP.SPRINK GT SCH ×2 (08:35→16:09)
[2017-12-31] MEDS: PROSOURCE / PROSTAT (PYXIS) 30 ML UDC GT SCH ×3 (08:36→16:09)
[2017-12-31] MEDS: ASCORBIC ACID 500 MG TABLET GT SCH (08:36)
[2017-12-31] MEDS: LEVOTHYROXINE SODIUM 100 MCG TABLET GT SCH (08:38)
[2017-12-31] MEDS: HYDROGEL DRESSING 90 GM TUBE TP SCH (08:45)
[2017-12-31] MEDS: Z GUARD REMEDY 2 OZ OINT TP SCH (08:46)
[2017-12-31 08:52] LABS: BASOPHILS % (AUTO) 0.2 % (0.0-2.0); EOSINOPHILS % (AUTO) 1.6 % (0.0-6.0); LYMPHOCYTES # (AUTO) 0.9 /CMM (0.8-4.8); LYMPHOCYTES % (AUTO) 7.9 % (20.0-44.0); MEAN CORPUSCULAR HGB CONC 34 g/dl (31.0-36.0); MEAN CORPUSCULAR VOLUME 89 fL (82-100); MONOCYTES # (AUTO) 0.3 /CMM (0.1-1.30); MONOCYTES % (AUTO) 2.5 % (2.0-12.0); NEUTROPHILS # (AUTO) 9.7 /CMM (1.8-8.9); NEUTROPHILS % (AUTO) 87.8 % (43.0-81.0); PLATELET COUNT (AUTO) 193 /CMM (150-450); RDW COEFFICIENT OF VARIATION 18.4 (11.5-15.0); RED BLOOD CELL COUNT(AUTO) 2.07 MIL/uL (4.0-5.2); WHITE BLOOD COUNT (AUTO) 11.1 K/uL (4.3-11.0)
[2017-12-31 09:24] LABS: HEMOGLOBIN 6.2 g/dL (11.5-14.8)
[2017-12-31 09:25] LABS: HEMATOCRIT 18 % (33-45)
--- NOTE | 2017-12-31 09:30 | NUR ---
ELVI RN NOTE WITH SEVERE GUM BLEEDING AND MOUTH BLEEDING CALLED TO DR WATERMAN, SEEN PATIENT STATED CONT TO DO ORAL CARE AND HE WILL CALL DR ONOFRE SURGEON TO LOOK AT PATIENT,
--- NOTE | 2017-12-31 09:35 | NUR ---
ELVI RN NOTE DR WATERMAN NOTIFIED THAT HG 6.2 WITH ORDER OK TO TRANSFUSE 2 UNITS PRBC ,WILL F\U
[2017-12-31 10:00] LABS: EOSINOPHILS % (MANUAL) 1 % (0-4); LYMPHOCYTES % (MANUAL) 6 % (16-48); MONOCYTES % (MANUAL) 4 % (0-11.0); NEUTROPHILS % (MANUAL) 89 (42-76)
--- NOTE | 2017-12-31 10:30 | NUR ---
ELVI RN NOTE FREQUENT SUCTION AND MOUTH CARE DONE TO STOP BLEEDING FROM LIPS AND GUMS , PRESSURE DRESSING APPLIED AND ICE PLACED ,WILL CONT TO MONITOR CLOSELY
--- NOTE | 2017-12-31 12:58 | NUR ---
ELVI RN NOTE BLOOD TRANSFUSION 1 ST UNIT PRBC START TO TRANSFUSE ,NO ADVERSE REACTION NOTED
--- NOTE | 2017-12-31 14:37 | NUR ---
ELVI RN NOTE SPOKE WITH DR PERALTA GI DOCTOR NOTIFIED THAT PATIENT HAS MOD ANT OF BLEEDING FROM MOUTH STATED CONT ORAL CARE, ICE PRN NEEDED AND MONITOR CLOSELY AT BEDSIDE
--- NOTE | 2017-12-31 14:56 | NUR ---
ELVI RN NOTE FAMILY AT BEDSIDE, DOING BREATHING TX BY RT, WILL CONT TO MONITOR CLOSELY
--- NOTE | 2017-12-31 16:12 | NUR ---
ELVI RN NOTE 1ST UNIT PRBC COMPLETED, NO ADVERSE REACTION NOTED
--- NOTE | 2017-12-31 17:31 | NUR ---
ELVI RN NOTE UNABLE TO DO PX ON SKIN TEAR ON LEFT AT THIS TIME , PATIENT HAD SEVERE MOUTH BLEEDING AT RISK FOR ASPIRATION , PATIENT ON VENT AND TRACH, KEEP AFFECTED AREA CLEAN DRY , REPOSITION Q2 HOUR WILL CONT TO MONITOR CLOSELY , ON [employer] MATRASS FOR SKIN MANAGEMENT
--- NOTE | 2017-12-31 18:42 | NUR ---
ELVI RN NOTE 2ND UNIT OF PRBC STARTED TO INFUSE ORDERED, MO ADVERSE REACTION NOTED , WILL CONT TO MONITOR CLOSELY
--- NOTE | 2017-12-31 19:42 | NUR ---
ELVI RN INITIAL NOTE RECEIVED PT ON 2ND UNIT OF PRBC STARTED TO INFUSE ORDERED, MO ADVERSE REACTION NOTED , WILL CONT TO MONITOR CLOSELY
[2018-01-01] VITALS (7 sets, daily range): BP systolic 118–156; BP diastolic 33–78
[2018-01-01] MEDS: ALBUTEROL FS 2.5 MG/0.5 ML VIAL.NEB NEB SCH ×6 (03:35→23:14)
[2018-01-01] MEDS: IPRATROPIUM NEB FS 0.5 MG/2.5 ML AMPUL.NEB NEB SCH ×6 (03:35→23:14)
[2018-01-01] MEDS: NEPRO 1,000 ML BOTTLE GT PRN (04:58)
[2018-01-01] MEDS: PIPERACILLIN IV SCH ×3 (05:01→17:27)
[2018-01-01] MEDS: TAZOBACTAM IV SCH ×3 (05:01→17:27)
[2018-01-01] MEDS: NS 0.9% IV SCH ×3 (05:01→17:27)
--- NOTE | 2018-01-01 06:18 | NUR ---
ELVI RN CLOSING NOTE ENDORSED PT S/P 2 UNITS OF PRBC INFUSED ORDERED, NO ADVERSE REACTION NOTED , WILL ENDORSE TO AM SHIFT TO CONT MONITOR CLOSELY
[2018-01-01 06:48] LABS: BASOPHILS % (AUTO) 0.4 % (0.0-2.0); EOSINOPHILS % (AUTO) 1.9 % (0.0-6.0); HEMATOCRIT 24 % (33-45); HEMOGLOBIN 8.2 g/dL (11.5-14.8); LYMPHOCYTES # (AUTO) 0.9 /CMM (0.8-4.8); MEAN CORPUSCULAR HGB CONC 34 g/dl (31.0-36.0); MEAN CORPUSCULAR VOLUME 88 fL (82-100); MONOCYTES # (AUTO) 0.4 /CMM (0.1-1.30); MONOCYTES % (AUTO) 3.8 % (2.0-12.0); NEUTROPHILS # (AUTO) 8.7 /CMM (1.8-8.9); NEUTROPHILS % (AUTO) 84.9 % (43.0-81.0); PLATELET COUNT (AUTO) 183 /CMM (150-450); RDW COEFFICIENT OF VARIATION 15.9 (11.5-15.0); RED BLOOD CELL COUNT(AUTO) 2.75 MIL/uL (4.0-5.2); WHITE BLOOD COUNT (AUTO) 10.2 K/uL (4.3-11.0)
[2018-01-01 07:18] LABS: CARBON DIOXIDE 24 mmol/L (21-32); CHLORIDE 103 mmol/L (98-107); CREATININE 0.9 mg/dL (0.6-1.3); GENTAMICIN,TROUGH 0.6 ug/ml (0.2-2.0); GLUCOSE 99 mg/dL (74-106); POTASSIUM 3.6 mmol/L (3.5-5.1); SODIUM SERUM 143 mmol/L (136-145)
[2018-01-01 07:27] LABS: UREA NITROGEN, BLOOD 88 mg/dL (7-18)
--- NOTE | 2018-01-01 07:30 | NUR ---
ELVI RN NOTE: RECEIVED PATIENT IN BED, ALERT TO HER NAME, AND SPONTANEOUSLY OPEN HER EYES WHEN CALLED. VENT-TRACH DEPENDENT SATURATING 96%. NO FACIAL GRIMACING NOTED. HOB ELEVATED. ON CHANNELER OUTSOLE, SR HR= 78. GT FEEDING OF NEPHRO @40CC/HR AND NO RESIDUAL NOTED. (L) UA PICC LINE NOTED INTACT AND PATENT. FLEXISEAL IN PLACED NOTED WITH BROWN/BLACK LIQUID STOOL. CALL LIGHT WITHIN REACH. NEEDS ANTICIPATED. UPON NURSE REPORT, PATIENT WILL POSSIBLY HAVE A HEMODIALYSIS TODAY. AWAITING FOR THE HD NURSE.
[2018-01-01] MEDS: LEVOTHYROXINE SODIUM 100 MCG TABLET GT SCH (08:18)
[2018-01-01] MEDS: VIT B CMPLX 3/FA/VIT C/BIOTIN 1 TAB TABLET GT SCH (09:26)
[2018-01-01] MEDS: LACTOBACILLUS RHAMNOSUS GG 1 EACH CAP.SPRINK GT SCH ×2 (09:26→17:26)
[2018-01-01] MEDS: PANTOPRAZOLE 40 MG VIAL IV SCH (09:28)
[2018-01-01] MEDS: ASCORBIC ACID 500 MG TABLET GT SCH (09:28)
[2018-01-01] MEDS: PROSOURCE / PROSTAT (PYXIS) 30 ML UDC GT SCH ×3 (09:30→17:26)
[2018-01-01] MEDS: Z GUARD REMEDY 2 OZ OINT TP SCH (09:31)
[2018-01-01] MEDS: HYDROGEL DRESSING 90 GM TUBE TP SCH (09:31)
--- NOTE | 2018-01-01 11:30 | NUR ---
ELVI RN NOTE: DAVID, WAS IN THE BEDSIDE AND WAS INFORMED THAT THE PATIENT IS SCHEDULED FOR A HEMODIALYSIS TODAY. ACCORDING TO THE , HE LEFT A MESSAGE TO DR. WATERMAN AND REQUESTED TO KEEP THE PATIENT FOR TODAY AND GET DISCHARGE BY TOMORROW AFTER HER HEMODIALYSIS BECAUSE HER SCHEDULED HD IN THE FACILITY WAS [id number]. DR. WATERMAN WAS AWARE ABOUT THE 'S REQUEST.
--- NOTE | 2018-01-01 12:30 | NUR ---
ELVI RN NOTE: PATIENT HAD HEMODIALYSIS TODAY AND OUTPUT WAS 1L. PRESENT AT THE BEDSIDE DURING THE HD. PATIENT REMAINED QUIET IN BED, AND AWAKE WATCHING TELEVISION WITH HER .
[2018-01-01] MEDS: GENTAMICIN 120 MG in IV D5W 50 ML IV PRN ×2 (14:00→14:12)
--- NOTE | 2018-01-01 18:57 | NUR ---
ELVI RN NOTE: PATIENT IN BED, ALERT TO HER NAME, AND SPONTANEOUSLY OPEN HER EYES WHEN CALLED. VENT-TRACH DEPENDENT SATURATING 100%. NO FACIAL GRIMACING NOTED. HOB ELEVATED. ON MICROPALEONTOLOGIST, SR HR= 75. GT FEEDING OF NEPHRO @40CC/HR AND NO RESIDUAL NOTED. (L) UA PICC LINE NOTED INTACT AND PATENT. FLEXISEAL IN PLACED AND CHANGED THE COLLECTION BAG. CALL LIGHT WITHIN REACH. REPORT WILL BE GIVEN TO THE PM SHIFT NURSE FOR CONTINUITY OF CARE.
--- NOTE | 2018-01-01 20:00 | NUR ---
RN INITIAL NOTE: RECEIVED PATIENT IN BED, ALERT TO HER NAME, AND SPONTANEOUSLY OPEN HER EYES WHEN CALLED. VENT-TRACH DEPENDENT SATURATING 96%. NO FACIAL GRIMACING NOTED. HOB ELEVATED. ON UNIT CONTROL CLERK. GT FEEDING OF NEPHRO @40CC/HR AND NO RESIDUAL NOTED. (L) UA PICC LINE NOTED INTACT AND PATENT. FLEXISEAL IN PLACED NOTED WITH BROWN/BLACK LIQUID STOOL. CALL LIGHT WITHIN REACH. NEEDS ANTICIPATED. UPON NURSE REPORT, PATIENT WILL POSSIBLY HAVE A HEMODIALYSIS TODAY. AND POSSIBLE WILL BE DISCHARGED AFTER HD. WILL ENDORSE TO AM RN.
[2018-01-02] VITALS: BP 136/43
[2018-01-02] MEDS: NS 0.9% IV SCH ×3 (00:31→12:49)
[2018-01-02] MEDS: TAZOBACTAM IV SCH ×3 (00:31→12:49)
[2018-01-02] MEDS: PIPERACILLIN IV SCH ×3 (00:31→12:49)
[2018-01-02 04:00] VITALS: BP 132/49
[2018-01-02] MEDS: ALBUTEROL FS 2.5 MG/0.5 ML VIAL.NEB NEB SCH ×5 (04:04→20:22)
[2018-01-02] MEDS: IPRATROPIUM NEB FS 0.5 MG/2.5 ML AMPUL.NEB NEB SCH ×5 (04:04→20:22)
[2018-01-02] MEDS: NEPRO 1,000 ML BOTTLE GT PRN (05:54)
--- NOTE | 2018-01-02 07:00 | NUR ---
RN OPENING NOTE: RECEIVED PATIENT IN BED, ALERT TO HER NAME, AND SPONTANEOUSLY OPEN HER EYES WHEN CALLED. VENT-TRACH DEPENDENT . NO FACIAL GRIMACING NOTED. HOB ELEVATED. ON HOME CARE MUSIC THERAPIST. GT FEEDING OF NEPHRO @40CC/HR . (L) UA PICC LINE NOTED INTACT AND PATENT. MILD BLEEDING NOTICED FROM THE MOUTH,SUCTION DONE.LIP BITTEN.FLEXISEAL IN PLACED NOTED WITH BROWN/BLACK LIQUID STOOL. CALL LIGHT WITHIN REACH. NEEDS ANTICIPATED. UPON NURSE REPORT, PATIENT WILL POSSIBLY HAVE A HEMODIALYSIS TODAY. AND POSSIBLE WILL BE DISCHARGED AFTER HD. WILL CONTINUE TO MONITOR.
--- NOTE | 2018-01-02 07:58 | NUR ---
RN CLOSING NOTES. NO SIGNIFICANT CHANGE IN PT CONDITION OVER SHIFT.
[2018-01-02 08:00] VITALS: BP 141/53
[2018-01-02] MEDS: Z GUARD REMEDY 2 OZ OINT TP SCH (09:03)
[2018-01-02] MEDS: VIT B CMPLX 3/FA/VIT C/BIOTIN 1 TAB TABLET GT SCH (09:03)
[2018-01-02] MEDS: PANTOPRAZOLE 40 MG VIAL IV SCH (09:03)
[2018-01-02] MEDS: ASCORBIC ACID 500 MG TABLET GT SCH (09:03)
[2018-01-02] MEDS: LACTOBACILLUS RHAMNOSUS GG 1 EACH CAP.SPRINK GT SCH ×2 (09:03→19:06)
[2018-01-02] MEDS: HYDROGEL DRESSING 90 GM TUBE TP SCH (09:04)
[2018-01-02] MEDS: LEVOTHYROXINE SODIUM 100 MCG TABLET GT SCH (09:07)
[2018-01-02] MEDS: PROSOURCE / PROSTAT (PYXIS) 30 ML UDC GT SCH ×3 (09:07→19:06)
[2018-01-02 10:12] LABS: BASOPHILS % (AUTO) 0.5 % (0.0-2.0); EOSINOPHILS % (AUTO) 2.3 % (0.0-6.0); HEMATOCRIT 21 % (33-45); LYMPHOCYTES # (AUTO) 0.8 /CMM (0.8-4.8); LYMPHOCYTES % (AUTO) 12.6 % (20.0-44.0); MEAN CORPUSCULAR HGB CONC 34 g/dl (31.0-36.0); MEAN CORPUSCULAR VOLUME 89 fL (82-100); MONOCYTES # (AUTO) 0.4 /CMM (0.1-1.30); NEUTROPHILS # (AUTO) 4.8 /CMM (1.8-8.9); NEUTROPHILS % (AUTO) 78.6 % (43.0-81.0); PLATELET COUNT (AUTO) 176 /CMM (150-450); RDW COEFFICIENT OF VARIATION 16.5 (11.5-15.0); RED BLOOD CELL COUNT(AUTO) 2.34 MIL/uL (4.0-5.2); WHITE BLOOD COUNT (AUTO) 6.2 K/uL (4.3-11.0)
[2018-01-02 10:40] LABS: CALCIUM, SERUM 8.9 mg/dL (8.5-10.1); CARBON DIOXIDE 26 mmol/L (21-32); CHLORIDE 103 mmol/L (98-107); CREATININE 0.7 mg/dL (0.6-1.3); GLUCOSE 106 mg/dL (74-106); POTASSIUM 3.2 mmol/L (3.5-5.1); SODIUM SERUM 141 mmol/L (136-145); UREA NITROGEN, BLOOD 70 mg/dL (7-18)
[2018-01-02 12:00] VITALS: BP 127/51
[2018-01-02] MEDS ORDERED: EPOETIN ALFA (10,000 UNIT) 10,000 UNIT/ML VIAL SQ ONE (12:00)
--- NOTE | 2018-01-02 14:30 | NUR ---
ELVI RN NOTES DIALYSIS NURSE MADE AWARE ABOUT THE LABS AND ORDER FROM NEPHROLOGY DOCTOR.
--- NOTE | 2018-01-02 15:15 | NUR ---
ELVI RN NOTES GOT CALL FROM PHARMACY TO HOLD GENTAMICIN UNTIL GET THE TROUGH LEVEL .OK TO GIVE IT IF LESS THAN 5.
[2018-01-02 16:00] VITALS: BP_SYST 122; BP_SYST 127; BP_DIAS 52; BP_DIAS 62
[2018-01-02] MEDS: GENTAMICIN 120 MG in IV D5W 50 ML IV PRN (16:47)
--- NOTE | 2018-01-02 17:00 | NUR ---
RN NOTES CALL GOT FROM PHARMACY OK TO GIVE GENTAMICIN SPOKE TO SERGIO.
--- NOTE | 2018-01-02 17:00 | NUR ---
ELVI RN NOTES HEMODIALYSIS IS DONE.PATIENT STABLE,2L OUTPUT DURING THE DIALYSIS.
--- NOTE | 2018-01-02 19:15 | NUR ---
RN SHIFT END NOTE: PATIENT IN BED, ALERT TO HER NAME, AND SPONTANEOUSLY OPEN HER EYES WHEN CALLED. VENT-TRACH DEPENDENT . NO FACIAL GRIMACING NOTED. HOB ELEVATED. ON DIRECTOR OF VOLUNTEER SERVICES. GT FEEDING OF NEPHRO @40CC/HR . (L) UA PICC LINE NOTED INTACT AND PATENT. MILD BLEEDING NOTICED FROM THE MOUTH,SUCTION DONE.LIP BITTEN.FLEXISEAL IN PLACED NOTED WITH BROWN/BLACK LIQUID STOOL. CALL LIGHT WITHIN REACH. NEEDS ANTICIPATED. UPON NURSE REPORT, PATIENT HAD HEMODIALYSIS TODAY.WILL ENDORSE TO PM NURSE FOR KIERA
[2018-01-02 20:00] VITALS: BP 135/80
[2018-01-03] VITALS (10 sets, daily range): BP systolic 104–151; BP diastolic 38–58
[2018-01-03] MEDS: ALBUTEROL FS 2.5 MG/0.5 ML VIAL.NEB NEB SCH ×6 (00:02→19:38)
[2018-01-03] MEDS: IPRATROPIUM NEB FS 0.5 MG/2.5 ML AMPUL.NEB NEB SCH ×6 (00:02→19:38)
[2018-01-03 06:19] LABS: BASOPHILS % (AUTO) 0.8 % (0.0-2.0); EOSINOPHILS % (AUTO) 2.3 % (0.0-6.0); LYMPHOCYTES # (AUTO) 0.9 /CMM (0.8-4.8); LYMPHOCYTES % (AUTO) 15.8 % (20.0-44.0); MEAN CORPUSCULAR HGB CONC 34 g/dl (31.0-36.0); MEAN CORPUSCULAR VOLUME 88 fL (82-100); MONOCYTES # (AUTO) 0.4 /CMM (0.1-1.30); NEUTROPHILS # (AUTO) 4.3 /CMM (1.8-8.9); NEUTROPHILS % (AUTO) 74.1 % (43.0-81.0); PLATELET COUNT (AUTO) 190 /CMM (150-450); RDW COEFFICIENT OF VARIATION 16.1 (11.5-15.0); RED BLOOD CELL COUNT(AUTO) 2.13 MIL/uL (4.0-5.2); WHITE BLOOD COUNT (AUTO) 5.8 K/uL (4.3-11.0)
--- NOTE | 2018-01-03 06:19 | NUR ---
pt on Vent support, gt feeding tolerating well, vss,afebrile,flexiseal 350cc liquid stool, sacral wound cleanse and packed ,covered with mepilex, mouthcare done lips still bleeding due to biting. kept clean and dry,reposition for comfort.PICC line draws blood kept tko for antibiotics.kept attended.
[2018-01-03 06:35] LABS: HEMATOCRIT 19 % (33-45); HEMOGLOBIN 6.4 g/dL (11.5-14.8)
[2018-01-03 06:48] LABS: CALCIUM, SERUM 9.1 mg/dL (8.5-10.1); CARBON DIOXIDE 29 mmol/L (21-32); CHLORIDE 101 mmol/L (98-107); CREATININE 0.6 mg/dL (0.6-1.3); GLUCOSE 101 mg/dL (74-106); PHOSPHORUS 3.7 mg/dL (2.5-4.9); POTASSIUM 2.9 mmol/L (3.5-5.1); SODIUM SERUM 139 mmol/L (136-145); UREA NITROGEN, BLOOD 58 mg/dL (7-18)
--- NOTE | 2018-01-03 06:48 | NUR ---
called [facility] admissions director Dr. Kristian Mitchell, left message that pt hgb 6.4 hct 19. charge nurse made aware.awaiting for call back.
--- NOTE | 2018-01-03 07:30 | NUR ---
PARKING OFFICER NOTES PATIENT IS A/O X2, ABLE TO MOUTH WORDS. TRACH INTACT, WITH VENT. DAMARI PICC LINE PATENT AND INTACT, FLUSHES WELL. ABDOMEN PRESENCE OF GTUBE, GASTRIC RESIDUAL 10ML, MAINTAIN HOB ELEVATED. NOTED BLEEDING INSIDE MOUTH, AND GUM AREAS. DENIES PAIN. RECTAL TUBE IN PLACE WITH BLACK LIQUIDS STOOLS. SAFETY MEASURES IN PLACE. WILL CONT TO MONITOR.
[2018-01-03] MEDS: VIT B CMPLX 3/FA/VIT C/BIOTIN 1 TAB TABLET GT SCH (09:42)
[2018-01-03] MEDS: ASCORBIC ACID 500 MG TABLET GT SCH (09:43)
[2018-01-03] MEDS: PANTOPRAZOLE 40 MG VIAL IV SCH (09:43)
[2018-01-03] MEDS: LACTOBACILLUS RHAMNOSUS GG 1 EACH CAP.SPRINK GT SCH ×2 (09:43→18:10)
[2018-01-03] MEDS: PROSOURCE / PROSTAT (PYXIS) 30 ML UDC GT SCH ×3 (09:49→17:17)
[2018-01-03] MEDS: LEVOTHYROXINE SODIUM 100 MCG TABLET GT SCH (09:49)
[2018-01-03] MEDS: HYDROGEL DRESSING 90 GM TUBE TP SCH (10:16)
[2018-01-03] MEDS: Z GUARD REMEDY 2 OZ OINT TP SCH (10:16)
[2018-01-03 10:33] LABS: LYMPHOCYTES % (MANUAL) 14 % (16-48); MONOCYTES % (MANUAL) 2 % (0-11.0); NEUTROPHILS % (MANUAL) 84 (42-76)
--- NOTE | 2018-01-03 10:45 | NUR ---
HGB 6.4 HCT 19 PLT 190 PATIENT IS BLEEDING FROM ALL AREAS OF THE GUMS. DR. SCHULZ IS AWARE, ORDERED 2UNITS OF PRBC WITH HD TODAY, WILL CONT TO MONITOR PATIENT.
--- NOTE | 2018-01-03 16:47 | NUR ---
PER DIALYSIS NURSE, NOT ENOUGH TO SUPPLEMENT POTASSIUM UNDER DIALYSIS TREATMENT. CHARGE NURSE IS AWARE, NOTIFIED DR. SCHULZ.
--- NOTE | 2018-01-03 17:00 | NUR ---
VS TAKEN AND RECORDED. HD IN PROGRESS, PRBC FIRST UNIT INFUSING WITH HD. WILL MONITOR PATIENT CLOSELY.
--- NOTE | 2018-01-03 17:32 | NUR ---
FIRST UNIT PRBC INFUSED WITH NO ADVERSE SYMPTOMS NOTED.
--- NOTE | 2018-01-03 17:55 | NUR ---
VS TAKEN AND RECORDED. HD STILL IN PROGRESS, PRBC 2ND UNIT INFUSING WITH HD. WILL MONITOR PATIENT CLOSELY.
[2018-01-03] MEDS: POTASSIUM CL. PREMIX PERIPHER. 50 ML IV SCH ×2 (18:07→19:06)
--- NOTE | 2018-01-03 18:14 | NUR ---
2ND UNIT PRBC INFUSED WITH NO ADVERSE SYMPTOMS NOTED.
[2018-01-03] MEDS ORDERED: DESMOPRESSIN 20 MCG in IV NS 0.9% 50 ML IV ONE (19:00)
--- NOTE | 2018-01-03 19:20 | NUR ---
FLOOR WINDER OPENING NOTES RECEIVED REPORT FROM MARSHA CHUNG FOR KIERA. PATIENT A/A/O X1, UNABLE TO VERBALIZE NEEDS BUT RESPONSIVE TO VERBAL & TACTILE STIMULI. BREATHING EVEN & UNLABORED W/ TRACH INTACT & VENT SETTINGS AC 16, TV 600, FIO2 40%, PEEP 0. SATING WELL @ 100%. ON TELE W/ SINUS RHYTHM, HR 84. NO RESPIRATORY OR CARDIAC DISTRESS NOTED. LEFT UPPER ARM PICC LINE INTACT & PATENT W/ DRESSING CDI, TKO. RIGHT CHEST WALL PERMACATH W/ DRESSING CDI. NO SIGNS OF BLEEDING OR SWELLING AROUND SITE. G-TUBE FLUSHING WELL W/ GTF NEPHRO @ 40 ML/HR. NO RESIDUAL NOTED @ THIS TIME. FLEXISEAL INTACT W/ LIQUID, BLACK OUTPUT. SAFETY MEASURES IN PLACE & HOB ELEVATED FOR ASPIRATION PRECAUTIONS. WILL CONTINUE TO MONITOR.
--- NOTE | 2018-01-03 20:01 | NUR ---
DIE REAMER CLOSING NOTES POST DIALYSIS TREATMENT, TOLERATED WELL, BP 140/52. SINUS RHYTHM HR 80 ON THE TELE MONITOR, VENT SETTINGS REMAINS THE SAME. LOW POTASSIUM 2.9, SUPPLEMENTED TODAY. ELEVATED GENTAMICIN TROUGH 4.2, CALLED PHARMACY, SPOKE WITH HANG IWLLS TO GIVE GENTAMICIN IV DOSE POST HD PER ELMA. RECTAL TUBE INTACT, WITH NO LEAKING, CLEAN AND DRY, REPLACED NEW BAG. DENIES PAIN, SAFETY MEASURES IN PLACE. ENDORSED TO NIGHT RN.
[2018-01-03] MEDS: EPOETIN ALFA (20,000 UNIT) 20,000 UNIT/ML VIAL SQ SCH (20:26)
[2018-01-03] MEDS: GENTAMICIN 120 MG in IV D5W 50 ML IV PRN (20:26)
[2018-01-04] VITALS: BP 141/46
[2018-01-04] MEDS: ALBUTEROL FS 2.5 MG/0.5 ML VIAL.NEB NEB SCH ×7 (00:01→23:55)
[2018-01-04] MEDS: IPRATROPIUM NEB FS 0.5 MG/2.5 ML AMPUL.NEB NEB SCH ×7 (00:01→23:55)
[2018-01-04 04:00] VITALS: BP 138/46
[2018-01-04] MEDS: NEPRO 1,000 ML BOTTLE GT PRN (06:29)
[2018-01-04 06:56] LABS: BASOPHILS % (AUTO) 0.6 % (0.0-2.0); EOSINOPHILS % (AUTO) 2.2 % (0.0-6.0); HEMATOCRIT 24 % (33-45); HEMOGLOBIN 8.2 g/dL (11.5-14.8); LYMPHOCYTES # (AUTO) 0.8 /CMM (0.8-4.8); LYMPHOCYTES % (AUTO) 14.6 % (20.0-44.0); MEAN CORPUSCULAR HGB CONC 34 g/dl (31.0-36.0); MEAN CORPUSCULAR VOLUME 87 fL (82-100); MONOCYTES # (AUTO) 0.3 /CMM (0.1-1.30); MONOCYTES % (AUTO) 5.4 % (2.0-12.0); NEUTROPHILS # (AUTO) 4.4 /CMM (1.8-8.9); NEUTROPHILS % (AUTO) 77.2 % (43.0-81.0); PLATELET COUNT (AUTO) 170 /CMM (150-450); RDW COEFFICIENT OF VARIATION 15.6 (11.5-15.0); RED BLOOD CELL COUNT(AUTO) 2.74 MIL/uL (4.0-5.2); WHITE BLOOD COUNT (AUTO) 5.7 K/uL (4.3-11.0)
[2018-01-04 07:07] LABS: INR 0.97 (0.87-1.13)
[2018-01-04 07:17] LABS: ALANINE AMINOTRANSFERASE 24 U/L (12-78); ALBUMIN 1.6 g/dL (3.4-5.0); ALKALINE PHOSPHATASE 144 U/L (46-116); ASPARTATE AMINOTRANSFERASE 21 U/L (15-37); BILIRUBIN,TOTAL 0.2 mg/dL (0.2-1.0); CALCIUM, SERUM 9.3 mg/dL (8.5-10.1); CARBON DIOXIDE 28 mmol/L (21-32); CHLORIDE 103 mmol/L (98-107); CREATININE 0.5 mg/dL (0.6-1.3); GLUCOSE 119 mg/dL (74-106); PHOSPHORUS 2.7 mg/dL (2.5-4.9); POTASSIUM 3.2 mmol/L (3.5-5.1); SODIUM SERUM 139 mmol/L (136-145); TOTAL PROTEIN, SERUM 5.3 g/dL (6.4-8.2); UREA NITROGEN, BLOOD 46 mg/dL (7-18)
[2018-01-04 07:24] LABS: IRON, SERUM 34 ug/dl (50-175); TOTAL IRON BINDING CAPACITY 205 ug/dl (250-450)
[2018-01-04 07:25] LABS: FERRITIN 513 ng/mL (8-388)
[2018-01-04 08:00] VITALS: BP 146/65
--- NOTE | 2018-01-04 08:00 | NUR ---
GLASS PRODUCTION MACHINE OPERATOR NOTE: RECEIVED REPORT FROM ELVI THAKUR RN FOR CONTINUITY OF CARE. PATIENT IN BED, VENT-TRACH DEPENDENT. ON EXHIBITION CARVER, SR HR= 92. HOB ELEVATED. ON GT FEEDING NEPHRO@ 40CC/HR NO RESIDUAL NOTED AND TOLERATING WELL. (L) UA PICC LINE NOTED PATENT AND INTACT. FLEXISEAL IN PLACED. BED ALARM AND LOCKED AT ALL TIMES. CALL LIGHT WITHIN REACH. NEEDS ANTICIPATED.
[2018-01-04] MEDS: ASCORBIC ACID 500 MG TABLET GT SCH (08:26)
[2018-01-04] MEDS: VIT B CMPLX 3/FA/VIT C/BIOTIN 1 TAB TABLET GT SCH (08:26)
[2018-01-04] MEDS: LEVOTHYROXINE SODIUM 100 MCG TABLET GT SCH (08:26)
[2018-01-04] MEDS: PANTOPRAZOLE 40 MG VIAL IV SCH (08:26)
[2018-01-04] MEDS: LACTOBACILLUS RHAMNOSUS GG 1 EACH CAP.SPRINK GT SCH ×2 (08:26→16:45)
[2018-01-04] MEDS: HYDROGEL DRESSING 90 GM TUBE TP SCH (08:27)
[2018-01-04] MEDS: Z GUARD REMEDY 2 OZ OINT TP SCH (08:27)
--- NOTE | 2018-01-04 08:27 | NUR ---
REPORT GIVEN TO MICHAEL CHUNG FOR KIERA.
[2018-01-04] MEDS: PROSOURCE / PROSTAT (PYXIS) 30 ML UDC GT SCH ×3 (08:32→16:46)
[2018-01-04 12:00] VITALS: BP 142/61
[2018-01-04] MEDS: POTASSIUM CHLORIDE 20 MEQ TAB.PRT.SR PO SCH ×2 (14:40→16:50)
[2018-01-04 16:00] VITALS: BP 149/61
--- NOTE | 2018-01-04 19:20 | NUR ---
ORACLE SOA ARCHITECT OPENING NOTES RECEIVED REPORT FROM MONSERRAT CHUNG. PATIENT A/A/O X1-2, ABLE TO MOUTH WORDS & MAKE SOME NEEDS KNOWN. RESPONSIVE TO VERBAL & TACTILE STIMULI. BREATHING EVEN & UNLABORED W/ TRACH INTACT & VENT SETTINGS AC 16, TV 600, FIO2 40%, PEEP 0. SATING WELL @ 100%. ON TELE W/ SINUS RHYTHM, HR 80. NO RESPIRATORY OR CARDIAC DISTRESS NOTED. LEFT UPPER ARM PICC LINE INTACT & PATENT W/ DRESSING CDI, TKO. RIGHT CHEST WALL PERMACATH W/ DRESSING CDI. NO SIGNS OF BLEEDING OR SWELLING AROUND SITE. G-TUBE FLUSHING WELL W/ GTF NEPHRO @ 40 ML/HR. NO RESIDUAL NOTED @ THIS TIME. FLEXISEAL INTACT W/ LIQUID, BLACK OUTPUT. SAFETY MEASURES IN PLACE & HOB ELEVATED FOR ASPIRATION PRECAUTIONS. WILL CONTINUE TO MONITOR.
--- NOTE | 2018-01-04 19:30 | NUR ---
STAVE JOINTER NOTE: PATIENT IN BED, VENT-TRACH DEPENDENT. ON EAR NOSE THROAT PHYSICIAN, SR HR= 88. HOB ELEVATED. ON GT FEEDING NEPHRO@ 40CC/HR NO RESIDUAL NOTED AND TOLERATING WELL. (L) UA PICC LINE NOTED PATENT AND INTACT. FLEXISEAL IN PLACED AND COLLECTION BAG WAS CHANGED. BED ALARM AND LOCKED AT ALL TIMES. CALL LIGHT WITHIN REACH. REPORT GIVEN TO PM SHIFT NURSE CONTINUITY OF CARE.
[2018-01-04 20:00] VITALS: BP_SYST 140; BP_DIAS 44; BP_DIAS 49
[2018-01-05] VITALS: BP 150/55
[2018-01-05 04:00] VITALS: BP 154/60
[2018-01-05] MEDS: IPRATROPIUM NEB FS 0.5 MG/2.5 ML AMPUL.NEB NEB SCH ×6 (04:14→23:54)
[2018-01-05] MEDS: ALBUTEROL FS 2.5 MG/0.5 ML VIAL.NEB NEB SCH ×6 (04:15→23:54)
[2018-01-05 06:58] LABS: BASOPHILS # (AUTO) 0.1 /CMM (0.0-0.2); EOSINOPHILS % (AUTO) 3.1 % (0.0-6.0); HEMATOCRIT 23 % (33-45); HEMOGLOBIN 7.8 g/dL (11.5-14.8); LYMPHOCYTES # (AUTO) 0.8 /CMM (0.8-4.8); LYMPHOCYTES % (AUTO) 15.3 % (20.0-44.0); MEAN CORPUSCULAR HGB CONC 35 g/dl (31.0-36.0); MEAN CORPUSCULAR VOLUME 87 fL (82-100); MONOCYTES # (AUTO) 0.3 /CMM (0.1-1.30); MONOCYTES % (AUTO) 6.4 % (2.0-12.0); NEUTROPHILS # (AUTO) 3.9 /CMM (1.8-8.9); NEUTROPHILS % (AUTO) 74.2 % (43.0-81.0); PLATELET COUNT (AUTO) 173 /CMM (150-450); RDW COEFFICIENT OF VARIATION 15.9 (11.5-15.0); RED BLOOD CELL COUNT(AUTO) 2.59 MIL/uL (4.0-5.2); WHITE BLOOD COUNT (AUTO) 5.3 K/uL (4.3-11.0)
[2018-01-05 07:13] LABS: CALCIUM, SERUM 9.7 mg/dL (8.5-10.1); CARBON DIOXIDE 27 mmol/L (21-32); CHLORIDE 101 mmol/L (98-107); CREATININE 0.8 mg/dL (0.6-1.3); GLUCOSE 121 mg/dL (74-106); PHOSPHORUS 3.5 mg/dL (2.5-4.9); POTASSIUM 3.4 mmol/L (3.5-5.1); SODIUM SERUM 138 mmol/L (136-145); UREA NITROGEN, BLOOD 61 mg/dL (7-18)
--- NOTE | 2018-01-05 07:23 | NUR ---
TEEN COUNSELOR OPENING NOTES RECEIVED PATIENT COMFORTABLY LYING IN BED @ MODERATE HIGH BACKREST POSITION. A/O X1-2, RESPONSIVE TO VERBAL & TACTILE STIMULI. ABLE TO MOUTH SOME WORDS. ON MECHANICAL VENT @ SETTINGS OF AC 16 TV 600 FIO2 40% AND PEEP 0, TOLERATING SETTINGS WELL WITH NO SOB NOTED. ON TELE-MONITORING WITH CURRENT READING OF SINUS RHYTHM AND HR 82. PICC LINE ON YANICK INTACT & PATENT W/ DRESSING CDI. RIGHT CHEST WALL PERMACATH W/ DRESSING CDI, NO SIGNS OF BLEEDING OR SWELLING AROUND SITE. G-TUBE IN PLACE WITH FEEDING OF NEPHRO @ 40 ML/HR IN PROGRESS, TOLERATING WELL. ASPIRATION PRECAUTIONS MAINTAINED. FLEXISEAL INTACT W/ LIQUID, BLACKISH BROWN OUTPUT. BED IN LOW/LOCKED POSITION WITH SIDE-RAILS UP X3. CALL LIGHT WITHIN REACH WILL CONTINUE TO MONITOR
[2018-01-05 08:00] VITALS: BP_SYST 145; BP_DIAS 58; BP_DIAS 88
[2018-01-05] MEDS: LEVOTHYROXINE SODIUM 100 MCG TABLET GT SCH (08:04)
[2018-01-05 08:09] LABS: IMMUNOGLOBULIN A, SERUM 313 mg/dL (64-422); IMMUNOGLOBULIN G, SERUM 347 mg/dL (700-1600); IMMUNOGLOBULIN M, SERUM 139 mg/dL (26-217)
[2018-01-05] MEDS: ASCORBIC ACID 500 MG TABLET GT SCH (08:31)
[2018-01-05] MEDS: PROSOURCE / PROSTAT (PYXIS) 30 ML UDC GT SCH ×3 (08:31→16:50)
[2018-01-05] MEDS: LACTOBACILLUS RHAMNOSUS GG 1 EACH CAP.SPRINK GT SCH ×2 (08:31→16:50)
[2018-01-05] MEDS: PANTOPRAZOLE 40 MG VIAL IV SCH (08:31)
[2018-01-05] MEDS: VIT B CMPLX 3/FA/VIT C/BIOTIN 1 TAB TABLET GT SCH (08:31)
[2018-01-05] MEDS: HYDROGEL DRESSING 90 GM TUBE TP SCH (08:32)
[2018-01-05] MEDS: Z GUARD REMEDY 2 OZ OINT TP SCH (08:32)
--- NOTE | 2018-01-05 09:45 | NUR ---
RN NOTES PATIENT AWAKE AND ALERT IN NO ACUTE SIGNS OF DISTRESS. HEMODIALYSIS JUST STARTED VIA RCW PERMACATH. PRE HD V/S: BP 137/59MMHG, P 86, R 18, T 97.6F AND SP02 100%. WILL CONTINUE TO MONITOR.
[2018-01-05] MEDS ORDERED: POTASSIUM CHLORIDE 20 MEQ POWDER PACKET NG SCH (10:00)
[2018-01-05 12:00] VITALS: BP 122/43
--- NOTE | 2018-01-05 12:00 | NUR ---
RN NOTES PATIENT JUST FINISHED HDIALYSIS WITH 3,000 ML OUTPUT. S/P HD VS BP 100/52MMHG, P 97, R 16 , T 98.2F AND SP02 98%. PT REMAINS ALERT WITH NO ACUTE SIGNS OF DISTRESS NOTED. WILL CONTINUE TO MONITOR.
--- NOTE | 2018-01-05 13:47 | NUR ---
RN NOTES PATIENT NOTED WITH LOW K LEVEL 3.4, REPLACED WITH KLOR CON POWDER 20MEQ VIA G-TUBE. WILL CONTINUE TO MONITOR.
[2018-01-05 16:00] VITALS: BP_SYST 120; BP_DIAS 39; BP_DIAS 49
[2018-01-05] MEDS: NEPRO 1,000 ML BOTTLE GT PRN (16:02)
--- NOTE | 2018-01-05 18:38 | NUR ---
PRINTER SLOTTER FEEDER CLOSING NOTES PATIENT AWAKE AND LYING COMFORTABLY AT MODERATE HIGH BACKREST POSITION WITH AT BEDSIDE AT THIS TIME. A/O X1-2, RESPONSIVE TO VERBAL & TACTILE STIMULI. ABLE TO MOUTH SOME WORDS. RIGHT CHEST WALL PERMACATH W/ DRESSING C/D/I, NO SIGNS OF BLEEDING OR SWELLING AROUND SITE. POST HD TODAY WITH NO DELAYED ILL EFFECTS NOTED. MAINTAINED ON MECHANICAL VENT @ PRESCRIBED SETTINGS OF AC TV 600 RR 16 FIO2 40% AND PEEP 0, TOLERATING SETTINGS WELL WITH NO SOB NOTED. ON TELE-MONITORING WITH CURRENT READING OF SINUS TACH AND HR 101. PICC LINE @ YANICK INTACT & PATENT W/ DRESSING C/D/I. G-TUBE IN PLACE WITH FEEDING OF NEPHRO @ 40 ML/HR IN PROGRESS, TOLERATING WELL. ASPIRATION PRECAUTIONS MAINTAINED. FLEXISEAL INTACT W/ LIQUID, BLACKISH STOOL OUTPUT. HOB KEPT ELEVATED. BED IN LOW/LOCKED POSITION WITH SIDE-RAILS UP X3. CALL LIGHT WITHIN REACH. ALL NEEDS AND CARE PROVIDED WELL. WILL ENDORSE TO PROCESS CONTROL TECH NURSE FOR KIERA
[2018-01-05 20:00] VITALS: BP 141/48
--- NOTE | 2018-01-05 20:26 | NUR ---
RN NOTES RECEIVED PATIENT WITH EYES OPEN. NOTED WITH EYE TRACKING. AT BEDSIDE. NO DISTRESS NOTED. BREATHING EVEN AND UNLABORED. VENT SETTINGS WELL TOLERATED. NO PHYSICAL MANIFESTATION OF PAIN OR DISCOMFORT. FLEXISEAL IN PLACE, NOTED WITH BLACK BROWN TO GREEN BOWEL MOVEMENT. GTUBE PATENT AND INTACT. FEEDING WELL TOLERATED. KEPT CLEAN AND DRY. WILL CONTINUE TO MONITOR.
[2018-01-05] MEDS: EPOETIN ALFA (20,000 UNIT) 20,000 UNIT/ML VIAL SQ SCH (21:16)
[2018-01-06] VITALS: BP 134/54
[2018-01-06] MEDS: ALBUTEROL FS 2.5 MG/0.5 ML VIAL.NEB NEB SCH ×3 (03:35→11:00)
[2018-01-06] MEDS: IPRATROPIUM NEB FS 0.5 MG/2.5 ML AMPUL.NEB NEB SCH ×3 (03:35→10:59)
[2018-01-06 04:00] VITALS: BP 92/46
--- NOTE | 2018-01-06 06:30 | NUR ---
RN CLOSING NOTES NO SIGNIFICANT CHANGE OF CONDITION. VITAL SIGNS WNL. NO RESPIRATORY DISTRESS OR SHORTNESS OF BREATH. BREATHING EVEN AND UNLABORED. NO PHYSICAL MANIFESTATION OF PAIN OR DISCOMFORT. BLEEDING NOTED AROUND THE MOUTH. NOTED WITH EYE TRACKING. MOUTHWORDS BUT DIFFICULT TO UNDERSTAND. KEPT CLEAN AND DRY. WILL ENDORSE TO AM SHIFT FOR CONTINUITY OF CARE.
[2018-01-06 06:49] LABS: BASOPHILS % (AUTO) 0.7 % (0.0-2.0); EOSINOPHILS % (AUTO) 2.2 % (0.0-6.0); HEMATOCRIT 22 % (33-45); HEMOGLOBIN 7.4 g/dL (11.5-14.8); LYMPHOCYTES # (AUTO) 0.9 /CMM (0.8-4.8); LYMPHOCYTES % (AUTO) 17.4 % (20.0-44.0); MEAN CORPUSCULAR HGB CONC 34 g/dl (31.0-36.0); MEAN CORPUSCULAR VOLUME 88 fL (82-100); MONOCYTES # (AUTO) 0.3 /CMM (0.1-1.30); MONOCYTES % (AUTO) 6.5 % (2.0-12.0); NEUTROPHILS # (AUTO) 3.9 /CMM (1.8-8.9); NEUTROPHILS % (AUTO) 73.2 % (43.0-81.0); PLATELET COUNT (AUTO) 189 /CMM (150-450); RDW COEFFICIENT OF VARIATION 15.9 (11.5-15.0); RED BLOOD CELL COUNT(AUTO) 2.47 MIL/uL (4.0-5.2); WHITE BLOOD COUNT (AUTO) 5.3 K/uL (4.3-11.0)
[2018-01-06 07:24] LABS: CALCIUM, SERUM 9.5 mg/dL (8.5-10.1); CARBON DIOXIDE 30 mmol/L (21-32); CHLORIDE 101 mmol/L (98-107); CREATININE 0.7 mg/dL (0.6-1.3); GLUCOSE 118 mg/dL (74-106); POTASSIUM 4.3 mmol/L (3.5-5.1); SODIUM SERUM 139 mmol/L (136-145); UREA NITROGEN, BLOOD 56 mg/dL (7-18)
--- NOTE | 2018-01-06 07:30 | NUR ---
COMMUNITY RECREATION COORDINATOR AM NOTES RECEIVED PATIENT COMFORTABLY LYING IN BED @ MODERATE HIGH BACKREST POSITION. A/O X1-2, RESPONSIVE TO VERBAL & TACTILE STIMULI. ABLE TO MOUTH SOME WORDS. WITH PORTEX 8 ON MECHANICAL VENT @ SETTINGS OF AC 16 TV 600 FIO2 40% AND PEEP 0, TOLERATING SETTINGS WELL WITH NO SOB NOTED. RESPIRATION EVEN AND UNLABORED. ST HR 106 ON MONITOR. DENIES CHEST PAIN/DISCOMFORT. PICC LINE ON DAMARI INTACT & PATENT W/ DRESSING CDI. RIGHT CHEST WALL PERMACATH W/ DRESSING CDI, NO SIGNS OF BLEEDING OR SWELLING AROUND SITE. G-TUBE IN PLACE ONGOING FEEDING AT 40 ML/HR. 0 RESIDUAL. TOLERATING WELL. ASPIRATION PRECAUTIONS OBSERVED. FLEXISEAL INTACT W/ LIQUID, BLACKISH BROWN OUTPUT. BED IN LOW/LOCKED POSITION WITH SIDE-RAILS UP X3. CALL LIGHT WITHIN REACH WILL CONTINUE TO MONITOR
[2018-01-06 08:00] VITALS: BP 138/59
[2018-01-06] MEDS: LEVOTHYROXINE SODIUM 100 MCG TABLET GT SCH (09:15)
[2018-01-06] MEDS: LACTOBACILLUS RHAMNOSUS GG 1 EACH CAP.SPRINK GT SCH (09:16)
[2018-01-06] MEDS: HYDROGEL DRESSING 90 GM TUBE TP SCH (09:16)
[2018-01-06] MEDS: PANTOPRAZOLE 40 MG VIAL IV SCH (09:16)
[2018-01-06] MEDS: VIT B CMPLX 3/FA/VIT C/BIOTIN 1 TAB TABLET GT SCH (09:16)
[2018-01-06] MEDS: ASCORBIC ACID 500 MG TABLET GT SCH (09:16)
[2018-01-06] MEDS: Z GUARD REMEDY 2 OZ OINT TP SCH (09:17)
[2018-01-06] MEDS: PROSOURCE / PROSTAT (PYXIS) 30 ML UDC GT SCH ×2 (09:17→13:11)
--- NOTE | 2018-01-06 09:30 | NUR ---
GRINDER TENDER NOTES DUE MEDS GIVEN.
[2018-01-06 11:14] LABS: *SPE A/G RATIO 0.9 (0.7-1.7); *SPE ALBUMIN 2.2 g/dL (2.9-4.4); *SPE ALPHA-1-GLOBULIN 0.3 g/dL (0.0-0.4); *SPE ALPHA-2-GLOBULIN 0.7 g/dL (0.4-1.0); *SPE BETA GLOBULIN 0.8 g/dL (0.7-1.3); *SPE GLOBULIN, TOTAL 2.4 g/dL (2.2-3.9); *SPE M-SPIKE Not Observed g/dL (Not Observed); *SPEGAMMA GLOBULIN 0.6 g/dL (0.4-1.8)
[2018-01-06] MEDS ORDERED: EPOE200011 SQ (11:53)
[2018-01-06] MEDS ORDERED: Hydrogel Dressing TP (11:53)
[2018-01-06 12:00] VITALS: BP 121/52
--- NOTE | 2018-01-06 14:40 | NUR ---
[employer] NOTES PATIENT DISCHARGED TO [facility] PER MD IN STABLE CONDITION. PROVIDED DC INSTRUCTIONS, MED RECON LIST AND HEALTH TEACHINGS. PATIENT TO FOLLOW UP WITH PCP IN 1-2 WEEKS OR PER FACILITY PROTOCOL. WITH PORTEX 8 TRACH. INTACT. GT IN PLACE. DAMARI PICC LINE IN SITU ALL WITH [facility] DRESSING. PHOTOS OF SKIN ISSUES TAKEN INSIDE CHART. NO BELONGINGS. ALL PAPERWORKS SIGNED. PICKED UP BY [facility] AND WILL TRANSPORT TO FACILITY. REPORT GIVEN TO REHAN CHUNG EARLIER.
== END 2018-01-06 14:00 | DRG 981 ==
LOC: ER 16:43 → ICU 19:44 → TELE-TD 12-27 13:01 → TELE1 01-02 11:25
PROVIDERS: ADMIT Nurse Practitioner Acute Care; ATTEND Nurse Practitioner Acute Care
PROC: 5A1955Z Respiratory Ventilation, Greater than 96 Consecutive Hours (ICD-10-PCS; principal; 2017-12-19)
PROC: 5A1D70Z Performance of Urinary Filtration, Intermittent, Less than 6 Hours Per Day (ICD-10-PCS; 2017-12-20)
PROC: 5A1D70Z Performance of Urinary Filtration, Intermittent, Less than 6 Hours Per Day (ICD-10-PCS; 2017-12-21)
PROC: 30233N1 Transfusion of Nonautologous Red Blood Cells into Peripheral Vein, Percutaneous Approach (ICD-10-PCS; 2017-12-22)
PROC: 5A1D70Z Performance of Urinary Filtration, Intermittent, Less than 6 Hours Per Day (ICD-10-PCS; 2017-12-22)
PROC: B548ZZA Ultrasonography of Superior Vena Cava, Guidance (ICD-10-PCS; 2017-12-22)
PROC: 0JBK0ZZ Excision of Left Hand Subcutaneous Tissue and Fascia, Open Approach (ICD-10-PCS; 2017-12-22)
PROC: 02HV33Z Insertion of Infusion Device into Superior Vena Cava, Percutaneous Approach (ICD-10-PCS; 2017-12-22)
PROC: 0KBP0ZZ Excision of Left Hip Muscle, Open Approach (ICD-10-PCS; 2017-12-22)
PROC: 5A1D70Z Performance of Urinary Filtration, Intermittent, Less than 6 Hours Per Day (ICD-10-PCS; 2017-12-24)
PROC: 5A1D70Z Performance of Urinary Filtration, Intermittent, Less than 6 Hours Per Day (ICD-10-PCS; 2017-12-25)
PROC: 5A1D70Z Performance of Urinary Filtration, Intermittent, Less than 6 Hours Per Day (ICD-10-PCS; 2017-12-26)
PROC: 5A1D70Z Performance of Urinary Filtration, Intermittent, Less than 6 Hours Per Day (ICD-10-PCS; 2017-12-28)
PROC: 0DB68ZX Excision of Stomach, Via Natural or Artificial Opening Endoscopic, Diagnostic (ICD-10-PCS; 2017-12-28)
PROC: 5A1D70Z Performance of Urinary Filtration, Intermittent, Less than 6 Hours Per Day (ICD-10-PCS; 2017-12-30)
PROC: 5A1D70Z Performance of Urinary Filtration, Intermittent, Less than 6 Hours Per Day (ICD-10-PCS; 2018-01-01)
PROC: 5A1D70Z Performance of Urinary Filtration, Intermittent, Less than 6 Hours Per Day (ICD-10-PCS; 2018-01-02)
PROC: 5A1D70Z Performance of Urinary Filtration, Intermittent, Less than 6 Hours Per Day (ICD-10-PCS; 2018-01-03)
PROC: 5A1D70Z Performance of Urinary Filtration, Intermittent, Less than 6 Hours Per Day (ICD-10-PCS; 2018-01-05)
DX: T80.211A Bloodstream infection due to central venous catheter, initial encounter (principal); J96.21 Acute and chronic respiratory failure with hypoxia; N17.0 Acute kidney failure with tubular necrosis; A41.52 Sepsis due to Pseudomonas; E43 Unspecified severe protein-calorie malnutrition; J15.6 Pneumonia due to other Gram-negative bacteria; G93.40 Encephalopathy, unspecified; J15.9 Unspecified bacterial pneumonia; R65.21 Severe sepsis with septic shock; Z99.11 Dependence on respirator [ventilator] status; G93.41 Metabolic encephalopathy; R53.2 Functional quadriplegia; N18.6 End stage renal disease; J96.22 Acute and chronic respiratory failure with hypercapnia; I50.33 Acute on chronic diastolic (congestive) heart failure; L89.324 Pressure ulcer of left buttock, stage 4; I13.2 Hypertensive heart and chronic kidney disease with heart failure and with stage 5 chronic kidney disease, or end stage renal disease; D68.59 Other primary thrombophilia; E87.2 Acidosis; R13.10 Dysphagia, unspecified; D63.8 Anemia in other chronic diseases classified elsewhere; E03.9 Hypothyroidism, unspecified; Z79.899 Other long term (current) drug therapy; Y84.9 Medical procedure, unspecified as the cause of abnormal reaction of the patient, or of later complication, without mention of misadventure at the time of the procedure; Y92.129 Unspecified place in nursing home as the place of occurrence of the external cause; I48.91 Unspecified atrial fibrillation; V89.2XXS Person injured in unspecified motor-vehicle accident, traffic, sequela; I25.10 Atherosclerotic heart disease of native coronary artery without angina pectoris; E83.52 Hypercalcemia; E87.6 Hypokalemia; Z99.2 Dependence on renal dialysis; M85.9 Disorder of bone density and structure, unspecified; Z86.010 Personal history of colon polyps; Z96.612 Presence of left artificial shoulder joint; Z87.01 Personal history of pneumonia (recurrent); L30.4 Erythema intertrigo; S60.222A Contusion of left hand, initial encounter; X58.XXXA Exposure to other specified factors, initial encounter; D50.0 Iron deficiency anemia secondary to blood loss (chronic); Z96.611 Presence of right artificial shoulder joint; E66.9 Obesity, unspecified; Z68.37 Body mass index [BMI] 37.0-37.9, adult; E83.51 Hypocalcemia; K29.70 Gastritis, unspecified, without bleeding; Z93.0 Tracheostomy status; Z93.1 Gastrostomy status
CPT/HCPCS: 31720; 36415; 36600; 71045-TC; 80048-TC; 80053-TC; 80061-TC; 80076-TC; 80150; 80170-TC; 80202-TC; 82040-TC; 82272-TC; 82306; 82728-TC; 82746; 82784; 82803-TC; 82962-TC; 83540-TC; 83605-TC; 83735-TC; 83880; 84100-TC; 84132-TC; 84155; 84165; 84439-TC; 84443-TC; 84484-TC; 85025-TC; 85385-TC; 85610-TC; 85730-TC; 86334; 86850-TC; 86921-TC; 87040-TC; 87070-TC; 87081-TC; 87086-TC; 87186-TC; 88305-TC; 88313-TC; 88342; 90935-TC; 93307-TC; 94002-TC; 94003-TC; 94760-TC; 94762-TC; 99082-TC; A4216; A4217; A4606; A6248; A6253; A6402; A6403; A7526; C1751; C9113; J0278; J0885; J1265; J1580; J1720; J2543; J2597; J2704; J3370; J3480; J3490; J7030; J7040; J7050; J7060; P9016-BL; P9047; Z7610